=== PATIENT | female | born 1990 | race Caucasian/White ===

== ENCOUNTER 2018-12-14 21:04 | Inpatient (IN) | payer MEDICAID, OTHER ==
[~2018-12-14] VITALS: Ht 160 cm; Wt 74.1 kg
[~2018-12-14 21:04] MED LIST: CHOL200052 PO; DIPH50VI10 IVPush; DOXY25TA45 PO; DOXY25TA52 PO; FOLI-17 PO; INSU100C SQ-INSULIN; INSU100I28 SQ-INSULIN; INSU100V8 SQ; METO-429 PO; METO5SOL2 PO; OMEP5POW PO; ONDA4TAB13 PO; PNV91TAB3 PO; PYRI25TA2 PO; SCOP1PAT11 TD; VITA1CAP PO
--- NOTE | 2018-12-14 21:25 | NUR ---
pt in gown in [facility].
[2018-12-14] MEDS ORDERED: MORPHINE SULFATE 4 MG/ML, 1ML ONE (21:42)
[2018-12-14] MEDS ORDERED: ONDANSETRON 2MG/ML, 2ML ONE (21:42)
--- NOTE | 2018-12-14 21:55 | NUR ---
iv access established. pt medicated per jan. lab at bs.
[2018-12-14] MEDS ORDERED: ONDANSETRON ODT 4 MG PO ONE (22:00)
[2018-12-14] MEDS ORDERED: ONDANSETRON 2MG/ML, 2ML IVPush ONE (22:00)
[2018-12-14] MEDS ORDERED: MORPHINE SULFATE 4 MG/ML, 1ML IVPush PRN (22:00)
[2018-12-14 22:08] LABS: BASOPHILS # (AUTO) 0.13 x10^3/uL (0-0.1); BASOPHILS % (AUTO) 1 % (0-1); EOSINOPHILS # (AUTO) 0.02 x10^3/uL (0-0.4); EOSINOPHILS % (AUTO) 0 % (1-7); LYMPHOCYTES # (AUTO) 2.11 x10^3/uL (1-3.4); LYMPHOCYTES % (AUTO) 17 % (22-44); MD NO; MEAN CORPUSCULAR HEMOGLOBIN 26.6 pg (27.0-34.8); MEAN CORPUSCULAR HGB CONC 33.3 g/dL (32.4-35.8); MEAN CORPUSCULAR VOLUME 79.9 fL (80-100); MEAN PLATELET VOLUME 7.4 fL (7.4-10.4); MONOCYTES # (AUTO) 0.53 x10^3/uL (0.2-0.8); MONOCYTES % (AUTO) 4 % (2-9); NEUTROPHILS # (AUTO) 9.56 x10^3/uL (1.8-6.8); NEUTROPHILS % (AUTO) 78 % (42-75); PLATELET COUNT 431 x10^3/uL (130-400); RED BLOOD COUNT 5.47 x10^6/uL (3.82-5.3); RED CELL DISTRIBUTION WIDTH 15.6 % (9.6-15.2)
[2018-12-14 22:18] LABS: ALANINE AMINOTRANSFERASE 22 U/L (12-78); ALBUMIN 3.5 g/dL (3.4-5.0); ANION GAP 13 mmol/L (5-15); CALCIUM 10.1 mg/dL (8.5-10.1); CHLORIDE 109 mmol/L (98-107)
[2018-12-14 22:19] LABS: ACETONE, SERUM Small (20mg/dL) mg/dL (Negative)
[2018-12-14 22:23] LABS: ALKALINE PHOSPHATASE 120 U/L (45-117); BILIRUBIN,TOTAL 0.3 mg/dL (0.2-1.0); CREATININE 1.52 mg/dL (0.55-1.02); TROPONIN I < 0.015 ng/mL (0.000-0.045)
--- NOTE | 2018-12-14 22:48 | NUR ---
pt medicated with iv fluids per mar.
[2018-12-14] MEDS ORDERED: SODIUM CHLORIDE 0.9% 1,000ML IVBOLUS ONE (23:00)
[2018-12-14] MEDS ORDERED: METOCLOPRAMIDE 5 MG/ML, 2ML ONE (23:14)
[2018-12-14] MEDS ORDERED: METOCLOPRAMIDE 5 MG/ML, 2ML IVPush ONE (23:30)
[2018-12-15] MEDS ORDERED: SODIUM CHLORIDE 0.9% 1,000 ML IV ONE (00:03)
--- NOTE | 2018-12-15 00:22 | NUR ---
report of pt to ezekiel choudhury. all questions answered.
--- NOTE | 2018-12-15 00:25 | NUR ---
pt transported to floor via gurney.
[2018-12-15] MEDS ORDERED: ONDANSETRON 2MG/ML, 2ML IVPush PRN (00:30)
[2018-12-15] MEDS ORDERED: MORPHINE SULFATE 4 MG/ML, 1ML IVPush PRN (00:30)
[2018-12-15 01:31] LABS: MICROSCOPIC AUTO
[2018-12-15 01:32] LABS: CULTURE INDICATED? YES
[2018-12-15 01:59] VITALS: BP 109/61
[2018-12-15] MEDS ORDERED: PROMETHAZINE 25 MG/ML, 1ML IM PRN (02:00)
[2018-12-15] MEDS ORDERED: ACETAMINOPHEN 325 MG TABLET PO PRN (02:00)
[2018-12-15] MEDS ORDERED: LACTATED RINGERS 1,000 ML IV SCH (02:10)
[2018-12-15] MEDS ORDERED: MORPHINE SULFATE 4 MG/ML, 1ML ONE ×2 (02:21→06:40)
[2018-12-15] MEDS: morphine SULFATE 10 MG/ML, 1ML IVPush PRN ×6 (02:26→20:33)
[2018-12-15] MEDS: ENOXAPARIN 40 MG/0.4 ML SQ SCH (02:27)
[2018-12-15] MEDS ORDERED: SCOPOLAMINE PATCH, 1.5MG PATCH.TD72 TD SCH (02:30)
[2018-12-15] MEDS ORDERED: METO25TA4 PO (02:58)
[2018-12-15] MEDS ORDERED: METOCLOPRAMIDE 10MG TABLET PO SCH (06:00)
[2018-12-15] MEDS: OMEPRAZOLE 20 MG CAPSULE.DR PO SCH (06:34)
[2018-12-15 07:39] VITALS: BP_SYST 105; BP_SYST 95; BP_DIAS 60; BP_DIAS 70
[2018-12-15] MEDS: MULTIVITS,STRESS FORMULA 1 TABLET PO SCH (07:49)
[2018-12-15] MEDS: FOLIC ACID 1 MG TABLET PO SCH (07:49)
[2018-12-15] MEDS: CHOLECALCIFEROL 1,000 UNIT TABLET PO SCH (07:50)
[2018-12-15] MEDS: METOPROLOL TARTRATE 25 MG TABLET PO SCH (08:05)
[2018-12-15] MEDS ORDERED: ONDANSETRON ODT 4 MG ONE (08:16)
[2018-12-15] MEDS: ONDANSETRON ODT 4 MG PO PRN ×2 (08:17→18:39)
[2018-12-15] MEDS ORDERED: PRENATAL VIT/IRON/FA 1 EACH TABLET PO SCH (09:00)
[2018-12-15] MEDS: METOCLOPRAMIDE 5 MG/ML, 2ML IVPush SCH ×3 (10:22→21:44)
[2018-12-15] MEDS: PROMETHAZINE 12.5 MG SUPP PR PRN ×2 (11:39→21:46)
[2018-12-15 12:19] LABS: ANION GAP 10 mmol/L (5-15); CALCIUM 8.9 mg/dL (8.5-10.1); CHLORIDE 109 mmol/L (98-107); CREATININE 1.33 mg/dL (0.55-1.02)
[2018-12-15] MEDS: LACTATED RINGERS 1,000 ML IV SCH ×2 (12:21→18:37)
[2018-12-15 12:29] LABS: BASOPHILS # (AUTO) 0.06 x10^3/uL (0-0.1); BASOPHILS % (AUTO) 1 % (0-1); EOSINOPHILS # (AUTO) 0.08 x10^3/uL (0-0.4); EOSINOPHILS % (AUTO) 1 % (1-7); HEMOGRAM NOTE RECHECKED; LYMPHOCYTES # (AUTO) 3.88 x10^3/uL (1-3.4); LYMPHOCYTES % (AUTO) 33 % (22-44); MD NO; MEAN CORPUSCULAR HEMOGLOBIN 26.5 pg (27.0-34.8); MEAN CORPUSCULAR HGB CONC 33.1 g/dL (32.4-35.8); MEAN PLATELET VOLUME 7.6 fL (7.4-10.4); MONOCYTES # (AUTO) 0.72 x10^3/uL (0.2-0.8); MONOCYTES % (AUTO) 6 % (2-9); NEUTROPHILS # (AUTO) 7.12 x10^3/uL (1.8-6.8); NEUTROPHILS % (AUTO) 60 % (42-75); PLATELET COUNT 338 x10^3/uL (130-400); RED BLOOD COUNT 4.57 x10^6/uL (3.82-5.3); RED CELL DISTRIBUTION WIDTH 15.9 % (9.6-15.2)
[2018-12-15 13:56] VITALS: BP 96/60
[2018-12-15 19:37] VITALS: BP 105/60
[2018-12-16 00:43] VITALS: BP 109/71
[2018-12-16] MEDS: morphine SULFATE 10 MG/ML, 1ML IVPush PRN ×6 (00:45→20:20)
[2018-12-16] MEDS: LACTATED RINGERS 1,000 ML IV SCH ×3 (00:45→16:33)
[2018-12-16] MEDS: ENOXAPARIN 40 MG/0.4 ML SQ SCH (04:45)
[2018-12-16] MEDS: METOCLOPRAMIDE 5 MG/ML, 2ML IVPush SCH ×4 (04:45→22:22)
[2018-12-16 05:27] LABS: BASOPHILS # (AUTO) 0.05 x10^3/uL (0-0.1); BASOPHILS % (AUTO) 1 % (0-1); EOSINOPHILS # (AUTO) 0.11 x10^3/uL (0-0.4); EOSINOPHILS % (AUTO) 1 % (1-7); LYMPHOCYTES # (AUTO) 3.67 x10^3/uL (1-3.4); LYMPHOCYTES % (AUTO) 37 % (22-44); MD NO; MEAN CORPUSCULAR HEMOGLOBIN 26.6 pg (27.0-34.8); MEAN CORPUSCULAR HGB CONC 32.5 g/dL (32.4-35.8); MEAN CORPUSCULAR VOLUME 81.9 fL (80-100); MEAN PLATELET VOLUME 7.7 fL (7.4-10.4); MONOCYTES # (AUTO) 0.43 x10^3/uL (0.2-0.8); MONOCYTES % (AUTO) 4 % (2-9); NEUTROPHILS % (AUTO) 57 % (42-75); PLATELET COUNT 301 x10^3/uL (130-400); RED BLOOD COUNT 4.25 x10^6/uL (3.82-5.3); RED CELL DISTRIBUTION WIDTH 16.3 % (9.6-15.2)
[2018-12-16 05:33] LABS: ANION GAP 8 mmol/L (5-15); CALCIUM 8.4 mg/dL (8.5-10.1); CHLORIDE 110 mmol/L (98-107)
[2018-12-16 05:35] LABS: CREATININE 0.83 mg/dL (0.55-1.02)
[2018-12-16] MEDS: OMEPRAZOLE 20 MG CAPSULE.DR PO SCH (06:29)
[2018-12-16 07:30] VITALS: BP 103/67
[2018-12-16] MEDS: ONDANSETRON 2MG/ML, 2ML IVPush PRN ×2 (08:24→16:31)
[2018-12-16] MEDS: METOPROLOL TARTRATE 25 MG TABLET PO SCH (08:25)
[2018-12-16] MEDS: FOLIC ACID 1 MG TABLET PO SCH (08:25)
[2018-12-16] MEDS: MULTIVITS,STRESS FORMULA 1 TABLET PO SCH (08:25)
[2018-12-16] MEDS: CHOLECALCIFEROL 1,000 UNIT TABLET PO SCH (08:25)
[2018-12-16 13:29] VITALS: BP 125/73
[2018-12-16] MEDS ORDERED: MORPHINE SULFATE 4 MG/ML, 1ML ONE ×2 (13:33→20:12)
[2018-12-16 20:18] VITALS: BP 143/87
[2018-12-17] MEDS ORDERED: MORPHINE SULFATE 4 MG/ML, 1ML ONE ×2 (00:25→03:57)
[2018-12-17] MEDS: morphine SULFATE 10 MG/ML, 1ML IVPush PRN ×3 (00:28→08:22)
[2018-12-17] MEDS: ONDANSETRON ODT 4 MG PO PRN ×4 (00:28→19:06)
[2018-12-17 01:23] VITALS: BP 123/79
[2018-12-17] MEDS ORDERED: LACTATED RINGERS 1,000 ML IV SCH (02:10)
[2018-12-17] MEDS: METOCLOPRAMIDE 5 MG/ML, 2ML IVPush SCH ×2 (04:02→09:58)
[2018-12-17] MEDS: ENOXAPARIN 40 MG/0.4 ML SQ SCH (04:06)
[2018-12-17] MEDS: LACTATED RINGERS 1,000 ML IV SCH (04:11)
[2018-12-17] MEDS: OMEPRAZOLE 20 MG CAPSULE.DR PO SCH ×2 (06:00→22:06)
[2018-12-17 06:11] LABS: ANION GAP 7 mmol/L (5-15); CALCIUM 8.3 mg/dL (8.5-10.1); CHLORIDE 111 mmol/L (98-107); CREATININE 0.69 mg/dL (0.55-1.02)
[2018-12-17 07:32] VITALS: BP 139/93
[2018-12-17] MEDS: CHOLECALCIFEROL 1,000 UNIT TABLET PO SCH (08:22)
[2018-12-17] MEDS: MULTIVITS,STRESS FORMULA 1 TABLET PO SCH (08:22)
[2018-12-17] MEDS: FOLIC ACID 1 MG TABLET PO SCH (08:22)
[2018-12-17] MEDS: METOPROLOL TARTRATE 25 MG TABLET PO SCH (08:22)
[2018-12-17] MEDS ORDERED: VANCOMYCIN PER PHARMACY MC PRN (10:30)
[2018-12-17] MEDS ORDERED: SCOPOLAMINE PATCH, 1.5MG PATCH.TD72 TD PRN (10:30)
[2018-12-17] MEDS ORDERED: METOCLOPRAMIDE 10MG TABLET PO PRN (10:30)
[2018-12-17] MEDS ORDERED: ACETAMINOPHEN 325 MG TABLET PO PRN (10:30)
[2018-12-17] MEDS: KETOROLAC 30 MG/1 ML IM PRN ×2 (10:41→19:07)
[2018-12-17] MEDS ORDERED: PHARMACOKINETIC MONITORING MC PRN (11:00)
[2018-12-17] MEDS ORDERED: PHARMACOKINETIC CONSULTATION MC ONE (11:00)
[2018-12-17] MEDS: VANCOMYCIN 1,100 MG in SODIUM CHLORIDE 0.9% 250 ML IV SCH ×2 (12:15→23:06)
[2018-12-17] MEDS: PANCRELIPASE 24,000 CAPSULE.DR PO SCH ×2 (12:22→16:51)
[2018-12-17 12:59] VITALS: BP 128/90
[2018-12-17 19:46] VITALS: BP 129/87
[2018-12-17] MEDS: ONDANSETRON 2MG/ML, 2ML IVPush PRN (23:06)
[2018-12-17] MEDS: PROMETHAZINE 12.5 MG SUPP PR PRN (23:40)
[2018-12-18 00:28] VITALS: BP 153/103
[2018-12-18 01:58] LABS: BASOPHILS # (AUTO) 0.06 x10^3/uL (0-0.1); BASOPHILS % (AUTO) 1 % (0-1); EOSINOPHILS # (AUTO) 0.23 x10^3/uL (0-0.4); EOSINOPHILS % (AUTO) 3 % (1-7); LYMPHOCYTES # (AUTO) 3.04 x10^3/uL (1-3.4); LYMPHOCYTES % (AUTO) 39 % (22-44); MD NO; MEAN CORPUSCULAR HEMOGLOBIN 26.2 pg (27.0-34.8); MEAN CORPUSCULAR HGB CONC 32.2 g/dL (32.4-35.8); MEAN CORPUSCULAR VOLUME 81.3 fL (80-100); MEAN PLATELET VOLUME 7.8 fL (7.4-10.4); MONOCYTES % (AUTO) 5 % (2-9); NEUTROPHILS # (AUTO) 4.04 x10^3/uL (1.8-6.8); NEUTROPHILS % (AUTO) 52 % (42-75); PLATELET COUNT 292 x10^3/uL (130-400); RED BLOOD COUNT 4.85 x10^6/uL (3.82-5.3); RED CELL DISTRIBUTION WIDTH 16.1 % (9.6-15.2)
[2018-12-18 02:05] LABS: ANION GAP 11 mmol/L (5-15); CALCIUM 8.7 mg/dL (8.5-10.1); CHLORIDE 106 mmol/L (98-107)
[2018-12-18] MEDS: ENOXAPARIN 40 MG/0.4 ML SQ SCH (04:00)
[2018-12-18] MEDS: FOLIC ACID 1 MG TABLET PO SCH (09:01)
[2018-12-18] MEDS: METOPROLOL TARTRATE 25 MG TABLET PO SCH (09:01)
[2018-12-18] MEDS: CHOLECALCIFEROL 1,000 UNIT TABLET PO SCH (09:01)
[2018-12-18] MEDS: OMEPRAZOLE 20 MG CAPSULE.DR PO SCH (09:01)
[2018-12-18] MEDS: PANCRELIPASE 24,000 CAPSULE.DR PO SCH ×2 (09:01→10:53)
[2018-12-18] MEDS: MULTIVITS,STRESS FORMULA 1 TABLET PO SCH (09:01)
[2018-12-18 09:08] VITALS: BP 135/80
[2018-12-18] MEDS ORDERED: AMPICILLIN/SULBACTAM 3 GM in SODIUM CHLORIDE 0.9% 100 ML IV SCH (09:30)
[2018-12-18] MEDS ORDERED: POTASSIUM CHLORIDE 20 MEQ TAB.ER.PRT PO ONE ×2 (10:00→12:00)
[2018-12-18] MEDS ORDERED: LEVOFLOXACIN/PMX 750MG/150ML 150 ML IV SCH (10:30)
== END 2018-12-18 13:30 | disposition left against medical advice (07) | DRG 73 ==
LOC: ED 23:59 → 4NOR 12-15 00:03
PROVIDERS: ADMIT Internal Medicine; ATTEND Internal Medicine
PROC: 5A09357 Assistance with Respiratory Ventilation, Less than 24 Consecutive Hours, Continuous Positive Airway Pressure (ICD-10-PCS; principal; 2018-12-17)
DX: E10.43 Type 1 diabetes mellitus with diabetic autonomic (poly)neuropathy (principal); N17.0 Acute kidney failure with tubular necrosis; K86.1 Other chronic pancreatitis; N39.0 Urinary tract infection, site not specified; K31.84 Gastroparesis; B95.2 Enterococcus as the cause of diseases classified elsewhere; E10.65 Type 1 diabetes mellitus with hyperglycemia; E78.5 Hyperlipidemia, unspecified; E83.52 Hypercalcemia; E86.0 Dehydration; E86.1 Hypovolemia; K52.9 Noninfective gastroenteritis and colitis, unspecified; K76.9 Liver disease, unspecified; Z79.4 Long term (current) use of insulin; Z80.3 Family history of malignant neoplasm of breast; Z82.49 Family history of ischemic heart disease and other diseases of the circulatory system; Z96.41 Presence of insulin pump (external) (internal); R00.0 Tachycardia, unspecified; R59.1 Generalized enlarged lymph nodes
CPT/HCPCS: 36415; 71045; 74176; 80048; 80053; 81001; 82010; 82947; 82962; 83690; 83735; 84100; 84484; 84703; 85025; 87077; 87086; 87186; 93005; 96374; 96375; 99285; G0378; J1650; J1885; J1956; J2405; J2550; J3370; Q0162; J2270; J2765; J7030; J7050; J7120

== ENCOUNTER 2018-12-31 08:16 | Inpatient (IN) | payer OTHER ==
[~2018-12-31] VITALS: Ht 160 cm; Wt 61.5 kg
[~2018-12-31 08:16] MED LIST changes: +METO25TA4 PO
--- NOTE | 2018-12-31 08:23 | NUR ---
blood glucose p.o.c. in triage
--- NOTE | 2018-12-31 08:29 | NUR ---
PT AMBULATORY WITH STEADY GAIT TO ROOM 17
--- NOTE | 2018-12-31 08:31 | NUR ---
28 Y/O FEMALE PRESENTS TO ED WITH C/O VOMITING AND ABD CRAMPING. "I WAS AT [facility] FOR DKA AND DISCHARGED 3 DAYS AGO STILL THROWING UP. I THINK I'M STILL IN DKA. I'VE BEEN THROWING UP." PT PLACED ON CONT PULSE OX,NIBP, CRAPS MANAGER. FAMILY BEDSIDE. NO C/O D, TRAUMA, SYNCOPE, CP, SOB
[2018-12-31] MEDS ORDERED: PROMETHAZINE 25 MG/ML, 1ML ONE (08:51)
[2018-12-31] MEDS ORDERED: SODIUM CHLORIDE 0.9% 1,000ML IVBOLUS ONE ×3 (09:00→10:30)
[2018-12-31] MEDS ORDERED: PROMETHAZINE 25 MG/ML, 1ML IM ONE (09:00)
--- NOTE | 2018-12-31 09:05 | NUR ---
PIV ESTABLISHED. PT AMBULATORY WITH STEADY GAIT TO BATHROOM.
[2018-12-31 09:12] LABS: PH, VENOUS 7.354 pH (7.320-7.420)
[2018-12-31 09:14] LABS: FIO2 RA %
--- NOTE | 2018-12-31 09:15 | NUR ---
PT RESTING ON GURNEY. NO ACUTE DISTRESS NOTED. ALL MONITORS REATTACHED. FAMILY BEDSIDE. NO NEEDS REQUESTED AT THIS TIME.
[2018-12-31 09:16] LABS: BASOPHILS % (AUTO) 0 % (0-1); EOSINOPHILS # (AUTO) 0.18 x10^3/uL (0-0.4); EOSINOPHILS % (AUTO) 1 % (1-7); LYMPHOCYTES # (AUTO) 0.95 x10^3/uL (1-3.4); LYMPHOCYTES % (AUTO) 6 % (22-44); MD NO; MEAN CORPUSCULAR HEMOGLOBIN 25.4 pg (27.0-34.8); MEAN CORPUSCULAR HGB CONC 31.6 g/dL (32.4-35.8); MEAN CORPUSCULAR VOLUME 80.4 fL (80-100); MEAN PLATELET VOLUME 7.7 fL (7.4-10.4); MONOCYTES # (AUTO) 0.72 x10^3/uL (0.2-0.8); MONOCYTES % (AUTO) 4 % (2-9); NEUTROPHILS # (AUTO) 15.04 x10^3/uL (1.8-6.8); NEUTROPHILS % (AUTO) 89 % (42-75); PLATELET COUNT 500 x10^3/uL (130-400); RED BLOOD COUNT 5.42 x10^6/uL (3.82-5.3); RED CELL DISTRIBUTION WIDTH 15.9 % (9.6-15.2)
[2018-12-31 09:25] LABS: ALANINE AMINOTRANSFERASE 38 U/L (12-78); ALBUMIN 3.5 g/dL (3.4-5.0); ANION GAP 17 mmol/L (5-15); CALCIUM 9.8 mg/dL (8.5-10.1); CHLORIDE 89 mmol/L (98-107)
[2018-12-31 09:26] LABS: ACETONE, SERUM Large (80mg/dL) mg/dL (Negative)
--- NOTE | 2018-12-31 09:30 | NUR ---
UA SENT TO LAB
[2018-12-31 09:31] LABS: ALKALINE PHOSPHATASE 131 U/L (45-117); TOTAL PROTEIN 7.8 g/dL (6.4-8.2)
[2018-12-31] MEDS ORDERED: INSULIN REGULAR 100 UNITS/ML, 3ML VIAL ONE ×2 (09:35→12:40)
[2018-12-31 09:37] LABS: MICROSCOPIC AUTO
[2018-12-31 09:45] LABS: CULTURE INDICATED? NO
[2018-12-31] MEDS ORDERED: INSULIN REGULAR 100 UNITS/ML, 3ML VIAL IVPush ONE (10:00)
[2018-12-31] MEDS ORDERED: SODIUM CHLORIDE 0.9%, 250ML IVBOLUS ONE (10:00)
--- NOTE | 2018-12-31 10:07 | NUR ---
PT RESTING ON [employer] PLAYING ON CELL PHONE. NO ACUTE DISTRESS NOTED. PT HAD ONE EPISODE OF EMESIS. FAMILY BEDSIDE. NO NEEDS REQUESTED AT THIS TIME
[2018-12-31] MEDS ORDERED: ALPR-475 PO (10:30)
[2018-12-31] MEDS ORDERED: ONDANSETRON 2MG/ML, 2ML IVPush PRN (10:30)
[2018-12-31] MEDS ORDERED: DEXTROSE 4 GM TAB.CHEW PO PRN (10:30)
[2018-12-31] MEDS ORDERED: SODIUM CHLORIDE FLUSH 10ML SYR IVF SCH (10:30)
[2018-12-31] MEDS ORDERED: INSULIN NPH HUMAN 100 UNIT/ML, 3ML VIAL SQ-INSULIN SCH (10:30)
[2018-12-31] MEDS ORDERED: INSU100C SQ-INSULIN (10:30)
[2018-12-31] MEDS ORDERED: DEXTROSE 50%, 50ML SYRINGE IVPush PRN (10:30)
[2018-12-31] MEDS ORDERED: INSU100V8 SQ (10:30)
[2018-12-31] MEDS ORDERED: DULO30CA2 PO (10:30)
[2018-12-31] MEDS ORDERED: GLUCAGON 1 MG IM PRN (10:30)
[2018-12-31] MEDS ORDERED: HEPARIN 5,000 UNITS/ML, 1ML SQ SCH (10:30)
[2018-12-31] MEDS ORDERED: NS + 20MEQ KCL 1,000 ML IV SCH (10:32)
--- NOTE | 2018-12-31 10:46 | NUR ---
PT RESTING ON GURNEY. NO ACUTE DISTRESS NOTED. PT PLAYING ON CELL PHONE. FAMILY LEFT AND WILL BE BACK LATER. AWAITING BED ASSIGNMENT
[2018-12-31] MEDS ORDERED: hydrALAzine 20 MG/ML, 1ML IVPush PRN (11:00)
[2018-12-31] MEDS ORDERED: ACETAMINOPHEN 325 MG TABLET PO PRN (11:00)
[2018-12-31] MEDS ORDERED: INSULIN LISPRO 100 UNITS/ML, PEN SQ-INSULIN SCH (11:00)
[2018-12-31] MEDS ORDERED: METOPROLOL TARTRATE 50 MG TABLET PO SCH (11:00)
--- NOTE | 2018-12-31 11:03 | NUR ---
PT OUT OF ROOM TO IMAGING
--- NOTE | 2018-12-31 11:05 | NUR ---
PT BACK FROM IMAGING.
--- NOTE | 2018-12-31 11:31 | NUR ---
REPORT TO [facility]. ALL QUESTIONS ANSWERED
--- NOTE | 2018-12-31 11:53 | NUR ---
PT RESTING ON GURNEY. NO ACUTE DISTRESS NOTED. NO NEEDS REQUESTED AT THIS TIME. LAB BEDSIDE.
[2018-12-31] MEDS ORDERED: ERYTHROMYCIN BASE 250 MG TABLET PO SCH (12:00)
[2018-12-31 12:25] LABS: HEMOGLOBIN A1C 12.4 % (4.2-6.3)
[2018-12-31 12:29] LABS: ANION GAP 15 mmol/L (5-15); CALCIUM 8.2 mg/dL (8.5-10.1); CHLORIDE 100 mmol/L (98-107); CREATININE 1.23 mg/dL (0.55-1.02)
[2018-12-31 12:47] VITALS: BP 124/58
--- NOTE | 2018-12-31 12:53 | NUR ---
CALLED UPDATES TO [facility]. RECEIVING RN AWARE OF NPH TO BE ADMINISTERED. ALL QUESTIONS ANSWERED.
--- NOTE | 2018-12-31 12:53 | NUR ---
PT TRANSFERRED TO FLOOR. PT LEFT WITH ALL PERSONAL BELONGINGS.
[2018-12-31] MEDS ORDERED: ERYTHROMYCIN 200 MG/5 ML ORAL SOL PO SCH (13:30)
[2018-12-31] MEDS ORDERED: INSULIN GLARGINE 100 UNITS/ML, PEN SQ-INSULIN SCH (21:00)
[2019-01-01] MEDS ORDERED: DULOXETINE 30 MG CAPSULE.DR PO SCH (09:00)
[2019-01-01] MEDS ORDERED: CHOLECALCIFEROL 1,000 UNIT TABLET PO SCH (09:00)
== END 2018-12-31 15:15 | disposition left against medical advice (07) | DRG 682 ==
LOC: ED 09:56 → EDIP 09:57 → ED 10:34 → 4WST 13:03
PROVIDERS: ADMIT Hospitalist; ATTEND Hospitalist
DX: N17.9 Acute kidney failure, unspecified (principal); E10.10 Type 1 diabetes mellitus with ketoacidosis without coma; R65.11 Systemic inflammatory response syndrome (SIRS) of non-infectious origin with acute organ dysfunction; E87.1 Hypo-osmolality and hyponatremia; K86.1 Other chronic pancreatitis; R65.10 Systemic inflammatory response syndrome (SIRS) of non-infectious origin without acute organ dysfunction; E10.43 Type 1 diabetes mellitus with diabetic autonomic (poly)neuropathy; E78.5 Hyperlipidemia, unspecified; E86.0 Dehydration; G89.29 Other chronic pain; K31.84 Gastroparesis; D47.3 Essential (hemorrhagic) thrombocythemia; R00.0 Tachycardia, unspecified; E86.9 Volume depletion, unspecified; Z53.21 Procedure and treatment not carried out due to patient leaving prior to being seen by health care provider; Z96.41 Presence of insulin pump (external) (internal); Z81.8 Family history of other mental and behavioral disorders; Z82.49 Family history of ischemic heart disease and other diseases of the circulatory system; Z98.891 History of uterine scar from previous surgery; Z88.0 Allergy status to penicillin; Z88.8 Allergy status to other drugs, medicaments and biological substances
CPT/HCPCS: 36415; 71045; 74018; 80048; 80053; 81001; 82010; 82803; 83036; 83605; 83690; 83735; 84100; 85025; 93005; 96361; 96372; 96374; 99291; G0378; J2405; J2550; J7030; J7050

== ENCOUNTER 2019-05-27 12:17 | Emergency (ER) | payer MEDICAID ==
[~2019-05-27] VITALS: Ht 160 cm; Wt 69.1 kg
[~2019-05-27 12:17] MED LIST changes: +ALPR-475 PO; +DULO30CA2 PO
--- NOTE | 2019-05-27 12:34 | NUR ---
PT HAS CO OF HIGH BLOOD PRESSURE FOR A FEW DAYS WITH HEADACHE. PT NOTICED BLOOD WAS 150/108 AND 9 WEEKS . WAITING FOR MD ORDERS.
[2019-05-27] MEDS ORDERED: LABETALOL 5MG/ML, 20ML IVPush ONE (13:00)
[2019-05-27] MEDS ORDERED: SODIUM CHLORIDE FLUSH 10ML SYR IVF ONE (13:00)
[2019-05-27] MEDS ORDERED: MORPHINE SULFATE 4 MG/ML, 1ML IVPush PRN (13:00)
[2019-05-27] MEDS ORDERED: ONDANSETRON 2MG/ML, 2ML IVPush ONE (13:00)
[2019-05-27 13:02] LABS: BASOPHILS # (AUTO) 0.05 x10^3/uL (0-0.1); BASOPHILS % (AUTO) 1 % (0-1); EOSINOPHILS # (AUTO) 0.16 x10^3/uL (0-0.4); EOSINOPHILS % (AUTO) 2 % (1-7); LYMPHOCYTES # (AUTO) 2.33 x10^3/uL (1-3.4); LYMPHOCYTES % (AUTO) 25 % (22-44); MD NO; MEAN CORPUSCULAR HEMOGLOBIN 25.7 pg (27.0-34.8); MEAN CORPUSCULAR HGB CONC 32.3 g/dL (32.4-35.8); MEAN CORPUSCULAR VOLUME 79.7 fL (80-100); MEAN PLATELET VOLUME 6.8 fL (7.4-10.4); MONOCYTES # (AUTO) 0.67 x10^3/uL (0.2-0.8); MONOCYTES % (AUTO) 7 % (2-9); NEUTROPHILS # (AUTO) 6.27 x10^3/uL (1.8-6.8); NEUTROPHILS % (AUTO) 66 % (42-75); PLATELET COUNT 428 x10^3/uL (130-400); RED BLOOD COUNT 5.02 x10^6/uL (3.82-5.3); RED CELL DISTRIBUTION WIDTH 16.3 % (9.6-15.2)
[2019-05-27] MEDS ORDERED: LABETALOL 5MG/ML, 20ML ONE (13:05)
[2019-05-27] MEDS ORDERED: ONDANSETRON 2MG/ML, 2ML ONE (13:05)
[2019-05-27] MEDS ORDERED: MORPHINE SULFATE 4 MG/ML, 1ML ONE (13:06)
[2019-05-27 13:14] LABS: ALANINE AMINOTRANSFERASE 15 U/L (12-78); ALBUMIN 2.5 g/dL (3.4-5.0); ANION GAP 8 mmol/L (5-15); CALCIUM 9.1 mg/dL (8.5-10.1); CHLORIDE 109 mmol/L (98-107); CREATININE 0.86 mg/dL (0.55-1.02)
[2019-05-27 13:16] LABS: ALKALINE PHOSPHATASE 61 U/L (45-117); BILIRUBIN,TOTAL 0.2 mg/dL (0.2-1.0); TOTAL PROTEIN 6.6 g/dL (6.4-8.2)
--- NOTE | 2019-05-27 13:17 | NUR ---
MEDICATED PER ORDERS. PT STATES "HEADACHE IS COMING DOWN" WILL CONTINUE TO MONITOR
--- NOTE | 2019-05-27 13:34 | NUR ---
PT TO X RAY VIA [facility]
--- NOTE | 2019-05-27 13:58 | NUR ---
PT RESTING, VERBALIZED NO NEEDS AT THIS TIME
--- NOTE | 2019-05-27 14:13 | NUR ---
PT AMBULATED STEADY TO BATHROOM. UA OBTAINED
[2019-05-27 14:38] VITALS: BP 154/91
--- NOTE | 2019-05-27 14:39 | NUR ---
Patient/Caregiver given discharge instructions and they have confirmed that they understand the instructions. Patient ambulatory with steady gait.
[2019-05-27 14:50] LABS: MICROSCOPIC INDICATED
[2019-05-27 14:54] LABS: CULTURE INDICATED? YES
== END 2019-05-27 14:49 | disposition home or self-care (01) ==
LOC: ED 13:46
DX: O16.1 Unspecified maternal hypertension, first trimester (principal); O24.419 Gestational diabetes mellitus in pregnancy, unspecified control; O26.891 Other specified pregnancy related conditions, first trimester; R51 Headache; E78.5 Hyperlipidemia, unspecified; Z3A.09 9 weeks gestation of pregnancy
CPT/HCPCS: 36415; 70450; 80053; 81001; 83735; 85025; 87077; 87086; 87186; 93005; 96374; 96375; 99291; J2270; J2405

== ENCOUNTER 2019-06-07 14:37 | Inpatient (IN) | payer MEDICAID ==
[~2019-06-07] VITALS: Ht 160 cm; Wt 70.6 kg
[2019-06-11 01:18] VITALS: BP 118/71
== END 2019-06-12 15:33 | disposition home or self-care (01) | DRG 832 ==
LOC: ED 15:29 → EDIP 17:08 → 4WST 18:44 → 3NE 06-11 20:27
PROVIDERS: ADMIT Family Medicine; ATTEND Family Medicine
PROC: 02HV33Z Insertion of Infusion Device into Superior Vena Cava, Percutaneous Approach (ICD-10-PCS; principal; 2019-06-12)
PROC: B5181ZA Fluoroscopy of Superior Vena Cava using Low Osmolar Contrast, Guidance (ICD-10-PCS; 2019-06-12)
PROC: B548ZZA Ultrasonography of Superior Vena Cava, Guidance (ICD-10-PCS; 2019-06-12)
DX: O23.01 Infections of kidney in pregnancy, first trimester (principal); E87.2 Acidosis; O98.811 Other maternal infectious and parasitic diseases complicating pregnancy, first trimester; O24.911 Unspecified diabetes mellitus in pregnancy, first trimester; R65.10 Systemic inflammatory response syndrome (SIRS) of non-infectious origin without acute organ dysfunction; B95.7 Other staphylococcus as the cause of diseases classified elsewhere; M94.0 Chondrocostal junction syndrome [Tietze]; E10.649 Type 1 diabetes mellitus with hypoglycemia without coma; E78.5 Hyperlipidemia, unspecified; E87.6 Hypokalemia; Z96.41 Presence of insulin pump (external) (internal); B37.3 Candidiasis of vulva and vagina; Z86.718 Personal history of other venous thrombosis and embolism; Z3A.10 10 weeks gestation of pregnancy; Z88.0 Allergy status to penicillin; Z88.5 Allergy status to narcotic agent; Z79.4 Long term (current) use of insulin; Z87.39 Personal history of other diseases of the musculoskeletal system and connective tissue; Z88.1 Allergy status to other antibiotic agents; Z88.8 Allergy status to other drugs, medicaments and biological substances
CPT/HCPCS: 36415; 36573; 76770; 76801; 80053; 81001; 82962; 83036; 83605; 83690; 84145; 84484; 84550; 84702; 85025; 87040; 87077; 87086; 87102; 87186; 93005; 93306; 93970; 96361; 96374; 99291; G0378; J1335; J1644; J2185; J2405; J2550; C1751; J2270; J7030

== ENCOUNTER 2019-06-14 13:50 | Inpatient (IN) | payer MEDICAID ==
[~2019-06-14] VITALS: Ht 160 cm; Wt 72.4 kg
[2019-06-24 12:55] VITALS: BP 105/71
== END 2019-06-24 15:30 | disposition home or self-care (01) | DRG 831 ==
LOC: ED 14:21 → EDIP 16:31 → 4NOR 18:53 → DCLOUNGE 06-24 15:24
PROVIDERS: ADMIT Internal Medicine; ATTEND Internal Medicine
DX: O98.811 Other maternal infectious and parasitic diseases complicating pregnancy, first trimester (principal); A41.9 Sepsis, unspecified organism; O23.01 Infections of kidney in pregnancy, first trimester; O24.911 Unspecified diabetes mellitus in pregnancy, first trimester; O98.311 Other infections with a predominantly sexual mode of transmission complicating pregnancy, first trimester; O10.911 Unspecified pre-existing hypertension complicating pregnancy, first trimester; A59.9 Trichomoniasis, unspecified; D53.9 Nutritional anemia, unspecified; E78.5 Hyperlipidemia, unspecified; E87.6 Hypokalemia; Z3A.12 12 weeks gestation of pregnancy; O99.281 Endocrine, nutritional and metabolic diseases complicating pregnancy, first trimester; Z96.41 Presence of insulin pump (external) (internal); Z88.0 Allergy status to penicillin; Z86.718 Personal history of other venous thrombosis and embolism; E11.649 Type 2 diabetes mellitus with hypoglycemia without coma
CPT/HCPCS: 36415; 76700; 76770; 76801; 80048; 80053; 81001; 82010; 82803; 82962; 83605; 83690; 83735; 84100; 84702; 85025; 86592; 87040; 87086; 87491; 87591; 87806; 93005; 96374; 99291; G0378; J1335; J1644; J1956; J2185; J2405; J2550; J3010; G0475; J2270; J7030

== ENCOUNTER 2019-09-04 15:44 | Inpatient (IN) | payer MEDICAID ==
[~2019-09-04] VITALS: Ht 160 cm; Wt 70.6 kg
[~2019-09-04 15:44] MED LIST changes: -ALPR-475 PO; +ALPR0.5T7 PO; +ASPI-191 PO; +CHOL100011 PO; +CLIN300C8 PO; +CLOT45CR5 VG; +ENOX40SY4 SQ; +ENOX40SY5 SQ; +ERTA1VIA4 INLINE; +FERR325T5 PO; +HYDR-3342 PO; +INSULIN PUMP; +LABE100T6 PO; +LABE200T6 PO; +NIFE30TA13 PO; +PREN-3 PO; +PRENATAL VITAMIN; +PROM12.57 PO; +PROM25SU35 PR
[2019-09-04] MEDS ORDERED: DEXTROSE 40%, 37.5 GM GEL ONE (16:09)
[2019-09-04] MEDS ORDERED: D5%-0.45% NACL 1,000 ML IV SCH (17:18)
[2019-09-04] MEDS ORDERED: DOCUSATE 100 MG CAPSULE PO PRN (17:30)
[2019-09-04] MEDS ORDERED: PLEASE ENTER HEIGHT AND WEIGHT MC SCH (17:30)
[2019-09-04 17:40] LABS: ALBUMIN 2.2 g/dL (3.4-5.0); ANION GAP 6 mmol/L (5-15); CALCIUM 9.1 mg/dL (8.5-10.1); CHLORIDE 113 mmol/L (98-107)
[2019-09-04 17:46] LABS: ALANINE AMINOTRANSFERASE 15 U/L (12-78); ALKALINE PHOSPHATASE 68 U/L (45-117); BILIRUBIN,TOTAL 0.2 mg/dL (0.2-1.0); CREATININE 0.78 mg/dL (0.55-1.02); TOTAL PROTEIN 6.8 g/dL (6.4-8.2)
[2019-09-04 17:59] LABS: MEAN CORPUSCULAR HEMOGLOBIN 25.4 pg (27.0-34.8); MEAN CORPUSCULAR HGB CONC 32.1 g/dL (32.4-35.8); PLATELET COUNT 402 x10^3/uL (130-400); RED CELL DISTRIBUTION WIDTH 16.6 % (9.6-15.2)
[2019-09-04 18:10] LABS: MD YES
[2019-09-04 18:12] LABS: MICROSCOPIC AUTO
[2019-09-04 18:12] LABS: BAND#(MANUAL) 0.57 x10^3/uL; BANDS%(MANUAL) 4 % (0-7); BASOS#(MANUAL) 0.14 x10^3/uL (0-0.1); BASOS% (MANUAL) 1 % (0-1); EOS#(MANUAL) 0.14 x10^3/uL (0.0-0.4); EOS% (MANUAL) 1 % (1-7); LYMPH#(MANUAL) 3.29 x10^3/uL (1-3.4); LYMPHS% (MANUAL) 23 % (22-44); METAMYELOCYTES# (MANUAL) 0.14 x10^3/uL (0-0); METAMYELOCYTES% (MANUAL) 1 % (0-1); MONOS% (MANUAL) 7 % (2-9); SEG#(MANUAL) 9.01 x10^3/uL (1.8-6.8); SEGS% (MANUAL) 63 % (42-75)
[2019-09-04 18:13] LABS: <PLATELET ESTIMATE> INCREASED; <PLT MORPHOLOGY> NORMAL PLT MORPH; ANISOCYTOSIS 1+; HYPOCHROMIA 1+; OVALOCYTES 1+; POLYCHROMASIA 1+
[2019-09-04 18:17] LABS: TROPONIN I < 0.015 ng/mL (0.000-0.045)
[2019-09-04 18:17] LABS: CULTURE INDICATED? NO
[2019-09-04] MEDS ORDERED: ADENOSINE 6 MG/2 ML ONE (19:00)
[2019-09-04] MEDS ORDERED: DEXTROSE 50%, 50ML SYRINGE ONE (19:00)
[2019-09-04 19:09] LABS: HEMOGLOBIN A1C 7.8 % (4.2-6.3)
[2019-09-04] MEDS: ONDANSETRON ODT 4 MG PO PRN (19:58)
[2019-09-04] MEDS ORDERED: ACETAMINOPHEN 100 ML IVPB ONE (20:00)
[2019-09-04] MEDS ORDERED: REGULAR INSULIN 62.5 UNITS in SODIUM CHLORIDE 0.9% 249.375 ML IV PRN (21:00)
[2019-09-04] MEDS: PROMETHAZINE 25 MG/ML, 1ML IM PRN (21:51)
[2019-09-04 22:40] LABS: ANION GAP 9 mmol/L (5-15); CALCIUM 8.4 mg/dL (8.5-10.1); CHLORIDE 110 mmol/L (98-107); CREATININE 0.86 mg/dL (0.55-1.02)
[2019-09-04 22:43] LABS: TROPONIN I < 0.015 ng/mL (0.000-0.045)
[2019-09-05] MEDS: ACETAMINOPHEN 325 MG TABLET PO PRN ×3 (04:10→20:54)
[2019-09-05 04:40] LABS: BASOPHILS # (AUTO) 0.02 x10^3/uL (0-0.1); BASOPHILS % (AUTO) 0 % (0-1); EOSINOPHILS % (AUTO) 1 % (1-7); LYMPHOCYTES # (AUTO) 3.11 x10^3/uL (1-3.4); LYMPHOCYTES % (AUTO) 21 % (22-44); MD NO; MEAN CORPUSCULAR HEMOGLOBIN 24.9 pg (27.0-34.8); MEAN CORPUSCULAR HGB CONC 31.6 g/dL (32.4-35.8); MEAN CORPUSCULAR VOLUME 78.7 fL (80-100); MEAN PLATELET VOLUME 6.5 fL (7.4-10.4); MONOCYTES # (AUTO) 0.86 x10^3/uL (0.2-0.8); MONOCYTES % (AUTO) 6 % (2-9); NEUTROPHILS # (AUTO) 10.87 x10^3/uL (1.8-6.8); NEUTROPHILS % (AUTO) 73 % (42-75); PLATELET COUNT 365 x10^3/uL (130-400); RED BLOOD COUNT 4.24 x10^6/uL (3.82-5.3)
[2019-09-05 04:48] LABS: ANION GAP 9 mmol/L (5-15); CALCIUM 8.5 mg/dL (8.5-10.1); CHLORIDE 112 mmol/L (98-107)
[2019-09-05 04:52] LABS: ALANINE AMINOTRANSFERASE 13 U/L (12-78); ALKALINE PHOSPHATASE 59 U/L (45-117); BILIRUBIN,TOTAL 0.2 mg/dL (0.2-1.0); CREATININE 0.75 mg/dL (0.55-1.02); TOTAL PROTEIN 6.2 g/dL (6.4-8.2)
[2019-09-05] MEDS: PROMETHAZINE 25 MG/ML, 1ML IM PRN ×2 (08:10→22:07)
[2019-09-05] MEDS: morphine SULFATE 10 MG/ML, 1ML IVPush PRN ×3 (12:03→22:07)
[2019-09-05] MEDS: ONDANSETRON ODT 4 MG PO PRN (12:04)
[2019-09-05] MEDS ORDERED: METOCLOPRAMIDE 5 MG/ML, 2ML IVPush PRN (16:00)
[2019-09-05] MEDS ORDERED: METOCLOPRAMIDE 5 MG/ML, 2ML ONE (16:29)
[2019-09-05] MEDS: ENOXAPARIN 40 MG/0.4 ML SQ SCH (16:35)
[2019-09-05] MEDS: METOCLOPRAMIDE 5 MG/ML, 2ML IVPush SCH ×2 (16:39→23:02)
[2019-09-05] MEDS ORDERED: D5%-0.45% NACL 1,000 ML IV SCH ×2 (17:18)
[2019-09-05] MEDS ORDERED: DEXTROSE 4 GM TAB.CHEW PO PRN (18:30)
[2019-09-05] MEDS ORDERED: GLUCAGON 1 MG IM PRN (18:30)
[2019-09-05] MEDS ORDERED: DEXTROSE 50%, 50ML SYRINGE IVPush PRN (18:30)
[2019-09-05] MEDS: SODIUM CHLORIDE FLUSH 10ML SYR IVF SCH (20:55)
[2019-09-05] MEDS ORDERED: INSULIN LISPRO 100 UNITS/ML, PEN SQ-INSULIN SCH (21:00)
[2019-09-05] MEDS: INSULIN LISPRO 100 UNITS/ML, PEN SQ-INSULIN SCH (23:00)
[2019-09-06] MEDS: INSULIN LISPRO 100 UNITS/ML, PEN SQ-INSULIN SCH ×6 (03:00→23:00)
[2019-09-06 04:20] LABS: ALANINE AMINOTRANSFERASE 13 U/L (12-78); ALBUMIN 1.9 g/dL (3.4-5.0); ANION GAP 7 mmol/L (5-15); CALCIUM 8.4 mg/dL (8.5-10.1); CHLORIDE 113 mmol/L (98-107); CREATININE 0.88 mg/dL (0.55-1.02)
[2019-09-06 04:22] LABS: ALKALINE PHOSPHATASE 55 U/L (45-117); BILIRUBIN,TOTAL 0.1 mg/dL (0.2-1.0); TOTAL PROTEIN 5.8 g/dL (6.4-8.2)
[2019-09-06 04:53] LABS: BASOPHILS # (AUTO) 0.07 x10^3/uL (0-0.1); BASOPHILS % (AUTO) 1 % (0-1); EOSINOPHILS # (AUTO) 0.33 x10^3/uL (0-0.4); EOSINOPHILS % (AUTO) 3 % (1-7); LYMPHOCYTES # (AUTO) 3.57 x10^3/uL (1-3.4); LYMPHOCYTES % (AUTO) 31 % (22-44); MD NO; MEAN CORPUSCULAR HEMOGLOBIN 25.4 pg (27.0-34.8); MEAN CORPUSCULAR HGB CONC 32.6 g/dL (32.4-35.8); MEAN PLATELET VOLUME 6.7 fL (7.4-10.4); MONOCYTES # (AUTO) 0.68 x10^3/uL (0.2-0.8); MONOCYTES % (AUTO) 6 % (2-9); NEUTROPHILS # (AUTO) 6.78 x10^3/uL (1.8-6.8); NEUTROPHILS % (AUTO) 59 % (42-75); PLATELET COUNT 375 x10^3/uL (130-400); RED BLOOD COUNT 3.84 x10^6/uL (3.82-5.3); RED CELL DISTRIBUTION WIDTH 16.9 % (9.6-15.2)
[2019-09-06] MEDS: METOCLOPRAMIDE 5 MG/ML, 2ML IVPush SCH ×4 (05:04→23:00)
[2019-09-06] MEDS: morphine SULFATE 10 MG/ML, 1ML IVPush PRN (06:39)
[2019-09-06] MEDS: SODIUM CHLORIDE FLUSH 10ML SYR IVF SCH ×2 (10:43→21:32)
[2019-09-06] MEDS: ACETAMINOPHEN 325 MG TABLET PO PRN (10:53)
[2019-09-06] MEDS ORDERED: MAGNESIUM SULFATE PMX 2GM/50ML 50 ML IV ONE (12:30)
[2019-09-06 14:45] VITALS: BP 149/66
[2019-09-06] MEDS: ENOXAPARIN 40 MG/0.4 ML SQ SCH (16:52)
[2019-09-06 19:51] VITALS: BP 152/99
[2019-09-07] MEDS: INSULIN LISPRO 100 UNITS/ML, PEN SQ-INSULIN SCH ×4 (03:00→14:55)
[2019-09-07 03:17] VITALS: BP 127/85
[2019-09-07] MEDS: METOCLOPRAMIDE 5 MG/ML, 2ML IVPush SCH ×3 (05:00→16:31)
[2019-09-07 05:34] VITALS: BP 140/90
[2019-09-07 06:08] LABS: BASOPHILS # (AUTO) 0.05 x10^3/uL (0-0.1); BASOPHILS % (AUTO) 0 % (0-1); EOSINOPHILS # (AUTO) 0.33 x10^3/uL (0-0.4); EOSINOPHILS % (AUTO) 3 % (1-7); LYMPHOCYTES # (AUTO) 2.69 x10^3/uL (1-3.4); LYMPHOCYTES % (AUTO) 21 % (22-44); MD NO; MEAN CORPUSCULAR HEMOGLOBIN 25.3 pg (27.0-34.8); MEAN CORPUSCULAR HGB CONC 32.3 g/dL (32.4-35.8); MEAN CORPUSCULAR VOLUME 78.2 fL (80-100); MEAN PLATELET VOLUME 6.8 fL (7.4-10.4); MONOCYTES # (AUTO) 0.69 x10^3/uL (0.2-0.8); MONOCYTES % (AUTO) 5 % (2-9); NEUTROPHILS # (AUTO) 9.18 x10^3/uL (1.8-6.8); NEUTROPHILS % (AUTO) 71 % (42-75); PLATELET COUNT 369 x10^3/uL (130-400); RED BLOOD COUNT 3.95 x10^6/uL (3.82-5.3); RED CELL DISTRIBUTION WIDTH 16.7 % (9.6-15.2)
[2019-09-07 06:19] LABS: CHLORIDE 108 mmol/L (98-107)
[2019-09-07 06:23] LABS: ANION GAP 7 mmol/L (5-15); CALCIUM 8.4 mg/dL (8.5-10.1); CREATININE 0.77 mg/dL (0.55-1.02)
[2019-09-07 07:00] VITALS: BP 127/82
[2019-09-07] MEDS: SODIUM CHLORIDE FLUSH 10ML SYR IVF SCH (09:37)
[2019-09-07 13:44] VITALS: BP 115/80
[2019-09-07] MEDS ORDERED: FLU VAC QS 19-20(4YR UP)CEL/PF 0.5 ML IM-VACC ONE (15:30)
[2019-09-07] MEDS ORDERED: FLU VACC QS2019-20 36MOS UP/PF 0.5 ML IM-VACC ONE (16:00)
[2019-09-07] MEDS: ENOXAPARIN 40 MG/0.4 ML SQ SCH (16:00)
== END 2019-09-07 16:30 | disposition home or self-care (01) | DRG 831 ==
LOC: LDOP 15:44 → CCU 18:06 → 3N 09-06 14:45 → DCLOUNGE 09-07 16:27
PROVIDERS: ADMIT Internal Medicine; ATTEND Internal Medicine
PROC: 0T9B70Z Drainage of Bladder with Drainage Device, Via Natural or Artificial Opening (ICD-10-PCS; principal; 2019-09-04)
DX: O99.283 Endocrine, nutritional and metabolic diseases complicating pregnancy, third trimester (principal); G93.41 Metabolic encephalopathy; D50.9 Iron deficiency anemia, unspecified; D72.829 Elevated white blood cell count, unspecified; E10.43 Type 1 diabetes mellitus with diabetic autonomic (poly)neuropathy; E10.649 Type 1 diabetes mellitus with hypoglycemia without coma; E88.09 Other disorders of plasma-protein metabolism, not elsewhere classified; K31.84 Gastroparesis; O99.013 Anemia complicating pregnancy, third trimester; O99.113 Other diseases of the blood and blood-forming organs and certain disorders involving the immune mechanism complicating pregnancy, third trimester; O99.353 Diseases of the nervous system complicating pregnancy, third trimester; Z3A.28 28 weeks gestation of pregnancy; Z86.718 Personal history of other venous thrombosis and embolism; Z87.39 Personal history of other diseases of the musculoskeletal system and connective tissue; Z96.41 Presence of insulin pump (external) (internal); O10.913 Unspecified pre-existing hypertension complicating pregnancy, third trimester; Z88.0 Allergy status to penicillin; Z88.8 Allergy status to other drugs, medicaments and biological substances
CPT/HCPCS: 74181; 76856; 76857; 80048; 80053; 81001; 82962; 83036; 83605; 83690; 83735; 84100; 84443; 84484; 85025; 87040; 87081; 90686; 93005; G0378; J0131; J0153; J1650; J1815; J2550; Q0162; J2270; J2765; J3475; J7050

== ENCOUNTER 2019-10-14 10:50 | Inpatient (IN) | payer OTHER, MEDICAID ==
[~2019-10-14] VITALS: Ht 162.6 cm; Wt 75.4 kg
[~2019-10-14 10:50] MED LIST changes: +DEXTROSE 50%, 50ML SYRINGE ONE
[2019-10-14] MEDS ORDERED: DEXTROSE 47%, 15GM GEL ONE ×2 (12:24→12:29)
[2019-10-14] MEDS ORDERED: GLUCAGON 1 MG IM ONE (13:00)
[2019-10-14] MEDS ORDERED: DEXTROSE 4 GM TAB.CHEW PO PRN (13:30)
[2019-10-14] MEDS ORDERED: hydrALAzine 20 MG/ML, 1ML IV PRN (13:30)
[2019-10-14] MEDS ORDERED: DEXTROSE 50%, 50ML SYRINGE IVPush PRN (13:30)
[2019-10-14] MEDS ORDERED: GLUCAGON 1 MG IM PRN (13:30)
[2019-10-14] MEDS ORDERED: DOCUSATE 100 MG CAPSULE PO PRN (13:30)
[2019-10-14 13:38] LABS: ALANINE AMINOTRANSFERASE 18 U/L (12-78); ALBUMIN 1.9 g/dL (3.4-5.0); ANION GAP 9 mmol/L (5-15); CALCIUM 8.7 mg/dL (8.5-10.1); CHLORIDE 111 mmol/L (98-107); CREATININE 0.76 mg/dL (0.55-1.02)
[2019-10-14 13:41] LABS: ALKALINE PHOSPHATASE 86 U/L (45-117); BILIRUBIN,TOTAL 0.2 mg/dL (0.2-1.0); TOTAL PROTEIN 6.4 g/dL (6.4-8.2)
[2019-10-14 14:37] LABS: CLOSTRIDIUM DIFFICILE ANTIGEN NEGATIVE; CLOSTRIDIUM DIFFICILE TOXIN NEGATIVE (Negative)
[2019-10-14 14:44] LABS: MEAN CORPUSCULAR HEMOGLOBIN 24.7 pg (27.0-34.8); MEAN CORPUSCULAR HGB CONC 31.4 g/dL (32.4-35.8); MEAN CORPUSCULAR VOLUME 78.5 fL (80-100); MEAN PLATELET VOLUME 6.6 fL (7.4-10.4); PLATELET COUNT 405 x10^3/uL (130-400); RED BLOOD COUNT 3.94 x10^6/uL (3.82-5.3); RED CELL DISTRIBUTION WIDTH 17.4 % (9.6-15.2)
[2019-10-14 15:15] LABS: MD YES
[2019-10-14] MEDS: D5%-0.45% NACL 1,000 ML IV SCH ×2 (15:18→23:45)
[2019-10-14] MEDS ORDERED: INSULIN LISPRO 100 UNITS/ML, PEN SQ-INSULIN SCH (16:00)
[2019-10-14 16:12] LABS: BAND#(MANUAL) 1.84 x10^3/uL; BANDS%(MANUAL) 8 % (0-7); LYMPH#(MANUAL) 1.38 x10^3/uL (1-3.4); LYMPHS% (MANUAL) 6 % (22-44); MONOS#(MANUAL) 1.38 x10^3/uL (0.3-2.7); MONOS% (MANUAL) 6 % (2-9); SEGS% (MANUAL) 80 % (42-75)
[2019-10-14 16:13] LABS: HYPOCHROMIA 1+; MICROCYTOSIS 1+
[2019-10-14 16:15] LABS: <PLATELET ESTIMATE> INCREASED; POLYCHROMASIA 1+; SMALL PLATELETS 1+
[2019-10-14 18:22] LABS: CULTURE INDICATED? YES; MICROSCOPIC INDICATED
[2019-10-14 18:28] LABS: BARBITURATE SCREEN, URINE Negative (Negative)
[2019-10-14 18:37] LABS: AMPHETAMINE SCREEN, URINE Negative (Negative); BENZODIAZEPINE SCREEN, URINE Negative (Negative); CANNABINOID SCREEN, URINE Negative (Negative); COCAINE SCREEN, URINE Negative (Negative); METHADONE SCREEN, URINE Negative (Negative); OPIATE SCREEN, URINE Negative (Negative); PROTEIN/CREATININE RATIO,URINE 3810 (0-200); TOTAL PROTEIN,URINE RANDOM 461 mg/dL (0-12)
[2019-10-14] MEDS: ENOXAPARIN 40 MG/0.4 ML SQ SCH (19:56)
[2019-10-14] MEDS ORDERED: FERROUS SULFATE 325 MG TABLET ONE (20:50)
[2019-10-14] MEDS ORDERED: SODIUM CHLORIDE FLUSH 10ML SYR IVF SCH (21:00)
[2019-10-14] MEDS: FERROUS SULFATE 325 MG TABLET PO SCH (21:10)
[2019-10-15] MEDS ORDERED: ONDANSETRON 2MG/ML, 2ML ONE (02:24)
[2019-10-15] MEDS ORDERED: FENTANYL PF 100 MCG/2ML ONE ×2 (02:24→04:57)
[2019-10-15] MEDS: ONDANSETRON 2MG/ML, 2ML IVPush PRN (02:25)
[2019-10-15] MEDS ORDERED: FENTANYL PF 100 MCG/2ML IV PRN ×3 (02:30→05:00)
[2019-10-15] MEDS ORDERED: hydrALAzine 20 MG/ML, 1ML ONE (02:43)
[2019-10-15] MEDS ORDERED: MAGNESIUM SULF. PMX 20GM/500ML 500 ML IV SCH (04:02)
[2019-10-15] MEDS ORDERED: MAGNESIUM SULFATE PMX 4GM/100M 100 ML ONE (04:06)
[2019-10-15] MEDS ORDERED: MAGNESIUM SULF. PMX 20GM/500ML 500 ML IV ONE (04:06)
[2019-10-15] MEDS ORDERED: MAGNESIUM SULFATE PMX 4GM/100M 100 ML IVPB ONE (04:30)
[2019-10-15] MEDS ORDERED: MAGNESIUM SULFATE PMX 2GM/50ML 50 ML IVPB ONE (04:30)
[2019-10-15 05:43] LABS: BASOPHILS # (AUTO) 0.01 x10^3/uL (0-0.1); BASOPHILS % (AUTO) 0 % (0-1); EOSINOPHILS # (AUTO) 0.19 x10^3/uL (0-0.4); EOSINOPHILS % (AUTO) 1 % (1-7); LYMPHOCYTES # (AUTO) 2.55 x10^3/uL (1-3.4); LYMPHOCYTES % (AUTO) 19 % (22-44); MD NO; MEAN CORPUSCULAR HEMOGLOBIN 24.9 pg (27.0-34.8); MEAN PLATELET VOLUME 6.7 fL (7.4-10.4); MONOCYTES # (AUTO) 0.74 x10^3/uL (0.2-0.8); MONOCYTES % (AUTO) 5 % (2-9); NEUTROPHILS # (AUTO) 10.17 x10^3/uL (1.8-6.8); NEUTROPHILS % (AUTO) 74 % (42-75); PLATELET COUNT 421 x10^3/uL (130-400); RED BLOOD COUNT 3.84 x10^6/uL (3.82-5.3); RED CELL DISTRIBUTION WIDTH 17.2 % (9.6-15.2)
[2019-10-15 05:44] LABS: ALANINE AMINOTRANSFERASE 18 U/L (12-78); ALBUMIN 1.7 g/dL (3.4-5.0); ANION GAP 9 mmol/L (5-15); CALCIUM 8.8 mg/dL (8.5-10.1); CHLORIDE 110 mmol/L (98-107); CREATININE 0.74 mg/dL (0.55-1.02)
[2019-10-15 05:47] LABS: ALKALINE PHOSPHATASE 80 U/L (45-117); BILIRUBIN,TOTAL 0.2 mg/dL (0.2-1.0); TOTAL PROTEIN 5.8 g/dL (6.4-8.2)
[2019-10-15 08:08] VITALS: BP 127/75
[2019-10-15] MEDS: MEROPENEM 1 GM in SODIUM CHLORIDE 0.9% 100 ML IV SCH ×3 (08:16→23:31)
[2019-10-15] MEDS: POTASSIUM CHLORIDE 20 MEQ TAB.ER.PRT PO SCH (08:23)
[2019-10-15] MEDS ORDERED: FERROUS SULFATE 325 MG TABLET ONE ×2 (09:09→21:07)
[2019-10-15] MEDS ORDERED: PRENATAL VIT/IRON/FA 1 EACH TABLET ONE (09:09)
[2019-10-15] MEDS: FERROUS SULFATE 325 MG TABLET PO SCH ×2 (09:20→21:16)
[2019-10-15] MEDS: PRENATAL VIT/IRON/FA 1 EACH TABLET PO SCH (09:20)
[2019-10-15] MEDS: CHOLECALCIFEROL 1,000 UNIT TABLET PO SCH (10:28)
[2019-10-15] MEDS ORDERED: SODIUM CHLORIDE 0.9% 1,000 ML IV SCH (11:00)
[2019-10-15] MEDS: SIMETHICONE 125 MG CHEW TAB PO SCH ×3 (11:05→21:35)
[2019-10-15 11:14] LABS: CREATININE 0.78 mg/dL (0.55-1.02)
[2019-10-15 12:37] LABS: AMPHETAMINE SCREEN, URINE Negative (Negative); BARBITURATE SCREEN, URINE Negative (Negative); BENZODIAZEPINE SCREEN, URINE Negative (Negative); CANNABINOID SCREEN, URINE Negative (Negative); COCAINE SCREEN, URINE Negative (Negative); METHADONE SCREEN, URINE Negative (Negative); OPIATE SCREEN, URINE Negative (Negative)
[2019-10-15] MEDS ORDERED: ACETAMINOPHEN 325 MG TABLET ONE (13:01)
[2019-10-15] MEDS: ACETAMINOPHEN 325 MG TABLET PO PRN (13:08)
[2019-10-15] MEDS ORDERED: MORPHINE SULFATE 4 MG/ML, 1ML ONE ×2 (13:28→23:28)
[2019-10-15] MEDS ORDERED: D5%-0.45% NACL 1,000 ML IV SCH (13:30)
[2019-10-15] MEDS: MORPHINE SULFATE 4 MG/ML, 1ML IVPush PRN ×3 (13:34→23:32)
[2019-10-15] MEDS: ENOXAPARIN 40 MG/0.4 ML SQ SCH (20:15)
[2019-10-15] MEDS ORDERED: SIMETHICONE 80 MG CHEW TAB ONE (21:07)
[2019-10-16 05:33] LABS: BASOPHILS # (AUTO) 0.06 x10^3/uL (0-0.1); BASOPHILS % (AUTO) 1 % (0-1); EOSINOPHILS # (AUTO) 0.23 x10^3/uL (0-0.4); EOSINOPHILS % (AUTO) 2 % (1-7); LYMPHOCYTES # (AUTO) 2.74 x10^3/uL (1-3.4); LYMPHOCYTES % (AUTO) 24 % (22-44); MD NO; MEAN CORPUSCULAR HGB CONC 32.4 g/dL (32.4-35.8); MEAN CORPUSCULAR VOLUME 77.3 fL (80-100); MEAN PLATELET VOLUME 6.8 fL (7.4-10.4); MONOCYTES # (AUTO) 0.76 x10^3/uL (0.2-0.8); MONOCYTES % (AUTO) 7 % (2-9); NEUTROPHILS # (AUTO) 7.53 x10^3/uL (1.8-6.8); NEUTROPHILS % (AUTO) 67 % (42-75); PLATELET COUNT 419 x10^3/uL (130-400); RED BLOOD COUNT 3.63 x10^6/uL (3.82-5.3); RED CELL DISTRIBUTION WIDTH 17.8 % (9.6-15.2)
[2019-10-16 05:40] LABS: CHLORIDE 110 mmol/L (98-107)
[2019-10-16 05:51] LABS: ALANINE AMINOTRANSFERASE 16 U/L (12-78); ALBUMIN 1.6 g/dL (3.4-5.0); ALKALINE PHOSPHATASE 71 U/L (45-117); ANION GAP 6 mmol/L (5-15); BILIRUBIN,TOTAL 0.4 mg/dL (0.2-1.0); CALCIUM 8.1 mg/dL (8.5-10.1); CREATININE 0.76 mg/dL (0.55-1.02); TOTAL PROTEIN 5.5 g/dL (6.4-8.2)
[2019-10-16] MEDS: SIMETHICONE 125 MG CHEW TAB PO SCH ×4 (06:04→20:32)
[2019-10-16] MEDS: MORPHINE SULFATE 4 MG/ML, 1ML IVPush PRN ×3 (06:06→22:28)
[2019-10-16] MEDS: MEROPENEM 1 GM in SODIUM CHLORIDE 0.9% 100 ML IV SCH ×3 (07:20→23:43)
[2019-10-16] MEDS: POTASSIUM CHLORIDE 20 MEQ TAB.ER.PRT PO SCH (08:00)
[2019-10-16 09:04] VITALS: BP 130/77
[2019-10-16] MEDS ORDERED: PRENATAL VIT/IRON/FA 1 EACH TABLET ONE (09:23)
[2019-10-16] MEDS ORDERED: FERROUS SULFATE 325 MG TABLET ONE ×3 (09:23→20:35)
[2019-10-16] MEDS: CHOLECALCIFEROL 1,000 UNIT TABLET PO SCH (09:29)
[2019-10-16] MEDS: PRENATAL VIT/IRON/FA 1 EACH TABLET PO SCH (09:29)
[2019-10-16] MEDS: FERROUS SULFATE 325 MG TABLET PO SCH ×2 (09:29→20:32)
[2019-10-16] MEDS ORDERED: MORPHINE SULFATE 4 MG/ML, 1ML ONE ×2 (13:09→22:26)
[2019-10-16] MEDS ORDERED: ACETAMINOPHEN 325 MG TABLET ONE (19:30)
[2019-10-16] MEDS: ACETAMINOPHEN 325 MG TABLET PO PRN (19:35)
[2019-10-16] MEDS: ENOXAPARIN 40 MG/0.4 ML SQ SCH (20:32)
[2019-10-16] MEDS ORDERED: ONDANSETRON 2MG/ML, 2ML ONE (20:49)
[2019-10-16] MEDS: ONDANSETRON 2MG/ML, 2ML IVPush PRN (20:52)
[2019-10-16] MEDS ORDERED: DEXTROSE 47%, 15GM GEL ONE (21:06)
[2019-10-17 05:44] LABS: ALANINE AMINOTRANSFERASE 22 U/L (12-78); ALBUMIN 1.6 g/dL (3.4-5.0); ALKALINE PHOSPHATASE 79 U/L (45-117); ANION GAP 9 mmol/L (5-15); BILIRUBIN,TOTAL 0.2 mg/dL (0.2-1.0); CALCIUM 8.1 mg/dL (8.5-10.1); CHLORIDE 109 mmol/L (98-107); CREATININE 0.58 mg/dL (0.55-1.02); TOTAL PROTEIN 5.5 g/dL (6.4-8.2)
[2019-10-17] MEDS ORDERED: MORPHINE SULFATE 4 MG/ML, 1ML ONE ×3 (05:46→20:49)
[2019-10-17] MEDS: MORPHINE SULFATE 4 MG/ML, 1ML IVPush PRN ×3 (05:48→21:01)
[2019-10-17] MEDS: SIMETHICONE 125 MG CHEW TAB PO SCH ×4 (06:29→20:55)
[2019-10-17 07:12] LABS: MEAN CORPUSCULAR HGB CONC 31.2 g/dL (32.4-35.8); MEAN CORPUSCULAR VOLUME 76.9 fL (80-100); MEAN PLATELET VOLUME 6.4 fL (7.4-10.4); PLATELET COUNT 434 x10^3/uL (130-400); RED BLOOD COUNT 3.71 x10^6/uL (3.82-5.3); RED CELL DISTRIBUTION WIDTH 17.6 % (9.6-15.2)
[2019-10-17 07:34] LABS: BASOPHILS # (AUTO) 0.01 x10^3/uL (0-0.1); BASOPHILS % (AUTO) 0 % (0-1); EOSINOPHILS # (AUTO) 0.19 x10^3/uL (0-0.4); EOSINOPHILS % (AUTO) 2 % (1-7); LYMPHOCYTES # (AUTO) 2.63 x10^3/uL (1-3.4); LYMPHOCYTES % (AUTO) 25 % (22-44); MD SCAN; MONOCYTES # (AUTO) 0.76 x10^3/uL (0.2-0.8); MONOCYTES % (AUTO) 7 % (2-9); NEUTROPHILS # (AUTO) 6.92 x10^3/uL (1.8-6.8); NEUTROPHILS % (AUTO) 66 % (42-75)
[2019-10-17] MEDS ORDERED: FERROUS SULFATE 325 MG TABLET ONE ×2 (07:55→19:26)
[2019-10-17] MEDS: FERROUS SULFATE 325 MG TABLET PO SCH ×2 (07:59→20:55)
[2019-10-17] MEDS: POTASSIUM CHLORIDE 20 MEQ TAB.ER.PRT PO SCH (07:59)
[2019-10-17] MEDS: MEROPENEM 1 GM in SODIUM CHLORIDE 0.9% 100 ML IV SCH ×3 (07:59→23:07)
[2019-10-17] MEDS ORDERED: ONDANSETRON 2MG/ML, 2ML ONE ×4 (08:06→20:00)
[2019-10-17] MEDS: ONDANSETRON 2MG/ML, 2ML IVPush PRN ×3 (08:09→20:06)
[2019-10-17 09:04] LABS: ALANINE AMINOTRANSFERASE 18 U/L (12-78); ALBUMIN 1.7 g/dL (3.4-5.0); ANION GAP 11 mmol/L (5-15); CALCIUM 8.3 mg/dL (8.5-10.1); CHLORIDE 109 mmol/L (98-107); CREATININE 0.57 mg/dL (0.55-1.02)
[2019-10-17 09:06] LABS: ALKALINE PHOSPHATASE 78 U/L (45-117); BILIRUBIN,TOTAL 0.1 mg/dL (0.2-1.0); TOTAL PROTEIN 5.4 g/dL (6.4-8.2)
[2019-10-17] MEDS ORDERED: PRENATAL VIT/IRON/FA 1 EACH TABLET ONE (11:04)
[2019-10-17] MEDS: PRENATAL VIT/IRON/FA 1 EACH TABLET PO SCH (11:07)
[2019-10-17] MEDS: CHOLECALCIFEROL 1,000 UNIT TABLET PO SCH (11:08)
[2019-10-17] MEDS ORDERED: METOCLOPRAMIDE 5 MG/ML, 2ML ONE (12:37)
[2019-10-17] MEDS ORDERED: METOCLOPRAMIDE 5 MG/ML, 2ML IVPush ONE (13:00)
[2019-10-17] MEDS: ENOXAPARIN 40 MG/0.4 ML SQ SCH (20:12)
[2019-10-17 20:19] VITALS: BP 136/81
[2019-10-18] MEDS ORDERED: ONDANSETRON 2MG/ML, 2ML ONE ×4 (05:01→17:12)
[2019-10-18] MEDS: ONDANSETRON 2MG/ML, 2ML IVPush PRN ×4 (05:08→17:17)
[2019-10-18] MEDS: MORPHINE SULFATE 4 MG/ML, 1ML IVPush PRN ×3 (05:35→19:28)
[2019-10-18] MEDS ORDERED: hydrALAzine 20 MG/ML, 1ML ONE (05:49)
[2019-10-18 05:50] LABS: ANION GAP 8 mmol/L (5-15); CALCIUM 8.7 mg/dL (8.5-10.1); CHLORIDE 108 mmol/L (98-107); CREATININE 0.67 mg/dL (0.55-1.02)
[2019-10-18 05:51] LABS: ALANINE AMINOTRANSFERASE 22 U/L (12-78); ALBUMIN 1.8 g/dL (3.4-5.0)
[2019-10-18 05:52] LABS: ALKALINE PHOSPHATASE 83 U/L (45-117); BILIRUBIN,TOTAL 0.1 mg/dL (0.2-1.0); TOTAL PROTEIN 6.1 g/dL (6.4-8.2)
[2019-10-18 05:55] LABS: BASOPHILS # (AUTO) 0.04 x10^3/uL (0-0.1); BASOPHILS % (AUTO) 0 % (0-1); EOSINOPHILS # (AUTO) 0.26 x10^3/uL (0-0.4); EOSINOPHILS % (AUTO) 2 % (1-7); LYMPHOCYTES # (AUTO) 2.71 x10^3/uL (1-3.4); LYMPHOCYTES % (AUTO) 25 % (22-44); MD NO; MEAN CORPUSCULAR HEMOGLOBIN 24.3 pg (27.0-34.8); MEAN CORPUSCULAR HGB CONC 31.9 g/dL (32.4-35.8); MEAN CORPUSCULAR VOLUME 76.2 fL (80-100); MEAN PLATELET VOLUME 6.6 fL (7.4-10.4); MONOCYTES # (AUTO) 0.65 x10^3/uL (0.2-0.8); MONOCYTES % (AUTO) 6 % (2-9); NEUTROPHILS # (AUTO) 7.12 x10^3/uL (1.8-6.8); NEUTROPHILS % (AUTO) 66 % (42-75); PLATELET COUNT 486 x10^3/uL (130-400); RED BLOOD COUNT 4.01 x10^6/uL (3.82-5.3); RED CELL DISTRIBUTION WIDTH 17.1 % (9.6-15.2)
[2019-10-18 07:30] VITALS: BP 124/79
[2019-10-18] MEDS: MEROPENEM 1 GM in SODIUM CHLORIDE 0.9% 100 ML IV SCH ×3 (07:30→23:11)
[2019-10-18] MEDS: SIMETHICONE 125 MG CHEW TAB PO SCH ×4 (07:51→21:12)
[2019-10-18] MEDS: POTASSIUM CHLORIDE 20 MEQ TAB.ER.PRT PO SCH (07:51)
[2019-10-18] MEDS ORDERED: FERROUS GLUCONATE 324 MG TABLET ONE (10:10)
[2019-10-18] MEDS ORDERED: PRENATAL VIT/IRON/FA 1 EACH TABLET ONE (10:11)
[2019-10-18] MEDS ORDERED: FERROUS SULFATE 325 MG TABLET ONE ×2 (10:11→21:09)
[2019-10-18 10:19] VITALS: BP 132/82
[2019-10-18] MEDS: FERROUS SULFATE 325 MG TABLET PO SCH ×2 (10:20→21:12)
[2019-10-18] MEDS: CHOLECALCIFEROL 1,000 UNIT TABLET PO SCH (10:20)
[2019-10-18] MEDS: PRENATAL VIT/IRON/FA 1 EACH TABLET PO SCH (10:20)
[2019-10-18] MEDS ORDERED: MORPHINE SULFATE 4 MG/ML, 1ML ONE ×2 (12:27→19:25)
[2019-10-18 13:47] VITALS: BP 158/89
[2019-10-18] MEDS: ENOXAPARIN 40 MG/0.4 ML SQ SCH (19:28)
[2019-10-18] MEDS ORDERED: DOCUSATE 100 MG CAPSULE ONE (21:08)
[2019-10-18 22:51] LABS: MICROSCOPIC AUTO
[2019-10-18 22:54] LABS: CULTURE INDICATED? NO
[2019-10-19] MEDS: PROMETHAZINE 25 MG SUPP PR PRN ×4 (00:47→20:06)
[2019-10-19] MEDS: MORPHINE SULFATE 4 MG/ML, 1ML IVPush PRN ×4 (00:47→20:43)
[2019-10-19] MEDS ORDERED: MORPHINE SULFATE 4 MG/ML, 1ML ONE ×3 (06:10→20:35)
[2019-10-19] MEDS: SIMETHICONE 125 MG CHEW TAB PO SCH ×4 (06:12→20:48)
[2019-10-19] MEDS: MEROPENEM 1 GM in SODIUM CHLORIDE 0.9% 100 ML IV SCH ×3 (08:42→23:31)
[2019-10-19] MEDS: POTASSIUM CHLORIDE 20 MEQ TAB.ER.PRT PO SCH (10:27)
[2019-10-19] MEDS: CHOLECALCIFEROL 1,000 UNIT TABLET PO SCH (10:28)
[2019-10-19] MEDS ORDERED: ACETAMINOPHEN 325 MG TABLET ONE ×2 (10:30→17:27)
[2019-10-19] MEDS ORDERED: PRENATAL VIT/IRON/FA 1 EACH TABLET ONE (10:30)
[2019-10-19] MEDS ORDERED: FERROUS SULFATE 325 MG TABLET ONE (10:31)
[2019-10-19] MEDS: PRENATAL VIT/IRON/FA 1 EACH TABLET PO SCH (10:32)
[2019-10-19] MEDS: ACETAMINOPHEN 325 MG TABLET PO PRN ×2 (10:32→17:30)
[2019-10-19] MEDS: FERROUS SULFATE 325 MG TABLET PO SCH (10:32)
[2019-10-19] MEDS: ENOXAPARIN 40 MG/0.4 ML SQ SCH (20:06)
[2019-10-20] MEDS ORDERED: MORPHINE SULFATE 4 MG/ML, 1ML ONE ×2 (02:27→08:23)
[2019-10-20] MEDS: MORPHINE SULFATE 4 MG/ML, 1ML IVPush PRN ×3 (02:33→08:30)
[2019-10-20] MEDS: PROMETHAZINE 25 MG SUPP PR PRN ×2 (03:05→11:04)
[2019-10-20] MEDS: SIMETHICONE 125 MG CHEW TAB PO SCH ×2 (07:42→11:46)
[2019-10-20] MEDS: MEROPENEM 1 GM in SODIUM CHLORIDE 0.9% 100 ML IV SCH (07:43)
[2019-10-20] MEDS: POTASSIUM CHLORIDE 20 MEQ TAB.ER.PRT PO SCH (08:30)
[2019-10-20] MEDS ORDERED: FOSFOMYCIN 3 GM PACKET PO ONE (09:30)
[2019-10-20] MEDS ORDERED: PRENATAL VIT/IRON/FA 1 EACH TABLET ONE (09:49)
[2019-10-20] MEDS ORDERED: FERROUS SULFATE 325 MG TABLET ONE (09:49)
[2019-10-20] MEDS: FERROUS SULFATE 325 MG TABLET PO SCH ×2 (09:52→09:59)
[2019-10-20] MEDS: PRENATAL VIT/IRON/FA 1 EACH TABLET PO SCH (09:52)
[2019-10-20] MEDS: CHOLECALCIFEROL 1,000 UNIT TABLET PO SCH (09:55)
[2019-10-20] MEDS ORDERED: FOSF3PAC PO ×2 (13:50)
[2019-10-20] MEDS ORDERED: PROM25SU35 PR (13:50)
[2019-10-20] MEDS ORDERED: FERR325T5 PO (13:50)
[2019-10-20] MEDS ORDERED: ENOX40SY4 SQ ×2 (15:00)
== END 2019-10-20 15:40 | disposition home or self-care (01) | DRG 832 ==
LOC: LDOP 10:50 → UNDOADMOB 13:21 → LDIP 13:21 → UNDOADMOB 13:28 → LDIP 13:28 → 2NE 17:42 → LDIP 17:42 → INTOOBSV 10-15 16:20 → 2NE 10-15 16:20 → OBSVTOIN 10-15 16:20 → UNDODISIN 10-20 15:40
PROVIDERS: ADMIT Obstetrics & Gynecology; ATTEND Obstetrics & Gynecology
DX: O24.013 Pre-existing type 1 diabetes mellitus, in pregnancy, third trimester (principal); O10.913 Unspecified pre-existing hypertension complicating pregnancy, third trimester; O40.3XX0 Polyhydramnios, third trimester, not applicable or unspecified; E10.43 Type 1 diabetes mellitus with diabetic autonomic (poly)neuropathy; E10.649 Type 1 diabetes mellitus with hypoglycemia without coma; R19.7 Diarrhea, unspecified; K31.84 Gastroparesis; O26.893 Other specified pregnancy related conditions, third trimester; R30.0 Dysuria; O99.013 Anemia complicating pregnancy, third trimester; D64.9 Anemia, unspecified; Z88.0 Allergy status to penicillin; Z86.718 Personal history of other venous thrombosis and embolism; Z3A.29 29 weeks gestation of pregnancy; Z83.3 Family history of diabetes mellitus; Z79.01 Long term (current) use of anticoagulants; Z93.0 Tracheostomy status; Z87.440 Personal history of urinary (tract) infections
CPT/HCPCS: 71045; 76770; 76815; 80053; 80307; 81001; 82565; 82570; 82962; 83605; 83735; 84145; 84156; 84550; 85025; 87046; 87086; 87324; 87427; 93005; G0378; J1650; J2185; J2405; J3010; J0360; J1610; J2270; J2765; J3475

== ENCOUNTER → 2019-10-26 | Outpatient (CLI) | payer OTHER, MEDICAID ==
[~2019-10-26] MED LIST changes: -DEXTROSE 50%, 50ML SYRINGE ONE; +FOSF3PAC PO
[2019-10-26 12:39] LABS: BASOPHILS # (AUTO) 0.05 x10^3/uL (0-0.1); BASOPHILS % (AUTO) 0 % (0-1); EOSINOPHILS # (AUTO) 0.22 x10^3/uL (0-0.4); EOSINOPHILS % (AUTO) 2 % (1-7); LYMPHOCYTES # (AUTO) 2.79 x10^3/uL (1-3.4); LYMPHOCYTES % (AUTO) 26 % (22-44); MD NO; MEAN CORPUSCULAR HEMOGLOBIN 24.8 pg (27.0-34.8); MEAN CORPUSCULAR HGB CONC 31.5 g/dL (32.4-35.8); MEAN CORPUSCULAR VOLUME 78.8 fL (80-100); MEAN PLATELET VOLUME 6.9 fL (7.4-10.4); MONOCYTES # (AUTO) 0.65 x10^3/uL (0.2-0.8); MONOCYTES % (AUTO) 6 % (2-9); NEUTROPHILS # (AUTO) 7.22 x10^3/uL (1.8-6.8); NEUTROPHILS % (AUTO) 66 % (42-75); PLATELET COUNT 393 x10^3/uL (130-400); RED BLOOD COUNT 4.43 x10^6/uL (3.82-5.3)
[2019-10-26 12:45] LABS: MICROSCOPIC INDICATED
[2019-10-26 13:00] LABS: CREATININE,URINE RANDOM 73.3 mg/dL
[2019-10-26 13:01] LABS: ALBUMIN 2.1 g/dL (3.4-5.0); ANION GAP 8 mmol/L (5-15); CALCIUM 9.5 mg/dL (8.5-10.1); CHLORIDE 106 mmol/L (98-107); CREATININE 0.92 mg/dL (0.55-1.02)
[2019-10-26 13:08] LABS: HEMOGLOBIN A1C 7.9 % (4.2-6.3)
[2019-10-27 14:51] LABS: ANA SCREEN POSITIVE (Negative); ANA TITER 1:40; ANTI-NUCLEAR ANTIBODY PATTERN SPECKLED
== END | disposition home or self-care (01) ==
LOC: LAB 12:14
PROVIDERS: ATTEND Internal Medicine Nephrology
DX: Z33.1 Pregnant state, incidental (principal); I10 Essential (primary) hypertension; R60.9 Edema, unspecified; R31.9 Hematuria, unspecified; R80.9 Proteinuria, unspecified; F12.10 Cannabis abuse, uncomplicated
CPT/HCPCS: 36415; 80069; 81001; 82306; 82570; 83036; 83735; 84156; 84550; 85025; 86038; 86039; 86160; 86162; 86225; 87086

== ENCOUNTER 2019-11-10 14:25 | Inpatient (IN) | payer OTHER, MEDICAID ==
[~2019-11-10] VITALS: Ht 160 cm; Wt 78.7 kg
[2019-11-10] MEDS ORDERED: GLUCAGON 1 MG ONE (14:49)
[2019-11-10] MEDS ORDERED: DEXTROSE 47%, 15GM GEL ONE (14:50)
[2019-11-10 15:11] LABS: MICROSCOPIC AUTO
[2019-11-10] MEDS ORDERED: NITR100C56 PO (15:25)
[2019-11-10] MEDS ORDERED: SODIUM CHLORIDE 0.9% 1,000ML IVBOLUS ONE (15:30)
[2019-11-10 15:33] LABS: BASOPHILS # (AUTO) 0.03 x10^3/uL (0-0.1); BASOPHILS % (AUTO) 0 % (0-1); EOSINOPHILS # (AUTO) 0.17 x10^3/uL (0-0.4); EOSINOPHILS % (AUTO) 1 % (1-7); MD NO; MEAN CORPUSCULAR HGB CONC 31.3 g/dL (32.4-35.8)
[2019-11-10 15:44] LABS: ALANINE AMINOTRANSFERASE 18 U/L (12-78); ALBUMIN 1.9 g/dL (3.4-5.0); ANION GAP 8 mmol/L (5-15); CHLORIDE 113 mmol/L (98-107)
[2019-11-10 15:47] LABS: ALKALINE PHOSPHATASE 106 U/L (45-117); BILIRUBIN,TOTAL 0.2 mg/dL (0.2-1.0); TOTAL PROTEIN 6.5 g/dL (6.4-8.2)
[2019-11-10] MEDS ORDERED: PLEASE ENTER HEIGHT AND WEIGHT MC SCH (16:00)
[2019-11-10] MEDS ORDERED: GLUCAGON 1 MG IM ONE (16:00)
[2019-11-10] MEDS ORDERED: D5%-0.9% NACL 1,000 ML IV SCH (16:00)
[2019-11-10] MEDS ORDERED: GLUCAGON 1 MG IVPush ONE (16:00)
[2019-11-10] MEDS ORDERED: DEXTROSE 10% 1,000 ML IV SCH ×2 (16:00→16:05)
[2019-11-10 16:13] VITALS: BP 127/90
[2019-11-10 16:29] LABS: AMPHETAMINE SCREEN, URINE Negative (Negative); BARBITURATE SCREEN, URINE Negative (Negative); BENZODIAZEPINE SCREEN, URINE Negative (Negative); CANNABINOID SCREEN, URINE Negative (Negative); COCAINE SCREEN, URINE Negative (Negative); METHADONE SCREEN, URINE Negative (Negative); OPIATE SCREEN, URINE Negative (Negative)
[2019-11-10] MEDS ORDERED: GLUCAGON 1 MG IM PRN (16:30)
[2019-11-10 16:48] LABS: FREE T4 (FREE THYROXINE) 0.84 ng/dL (0.76-1.46)
[2019-11-10 17:07] LABS: LYMPHOCYTES # (AUTO) 2.82 x10^3/uL (1-3.4); LYMPHOCYTES % (AUTO) 21 % (22-44); MEAN CORPUSCULAR HEMOGLOBIN 24.2 pg (27.0-34.8); MEAN CORPUSCULAR VOLUME 77.3 fL (80-100); MEAN PLATELET VOLUME 7.9 fL (7.4-10.4); MONOCYTES # (AUTO) 0.83 x10^3/uL (0.2-0.8); MONOCYTES % (AUTO) 6 % (2-9); NEUTROPHILS # (AUTO) 9.68 x10^3/uL (1.8-6.8); NEUTROPHILS % (AUTO) 72 % (42-75); PLATELET COUNT 307 x10^3/uL (130-400); RED BLOOD COUNT 4.37 x10^6/uL (3.82-5.3); RED CELL DISTRIBUTION WIDTH 18.2 % (9.6-15.2)
[2019-11-10] MEDS ORDERED: BETAMETHASONE 6 MG/ML, 5ML IM ONE (17:08)
[2019-11-10] MEDS: BETAMETHASONE 6 MG/ML, 5ML IM SCH (17:19)
[2019-11-10] MEDS: INSULIN LISPRO 100 UNITS/ML, PEN SQ-INSULIN SCH ×2 (17:30→21:00)
[2019-11-10] MEDS ORDERED: ACETAMINOPHEN 325 MG TABLET ONE ×2 (17:33→23:57)
[2019-11-10] MEDS ORDERED: CALCIUM CARBONATE 500 MG TAB.CHEW ONE ×2 (17:33→22:06)
[2019-11-10] MEDS: ACETAMINOPHEN 325 MG TABLET PO PRN (17:34)
[2019-11-10] MEDS: CALCIUM CARBONATE 500 MG TAB.CHEW PO PRN ×2 (17:35→22:07)
[2019-11-10] MEDS: DEXTROSE 4 GM TAB.CHEW PO PRN ×2 (19:14→21:34)
[2019-11-10 19:32] VITALS: BP 153/93
[2019-11-10] MEDS ORDERED: NITROFURANTOIN (MACROBID) 100 MG CAPSULE PO SCH (20:00)
[2019-11-10] MEDS ORDERED: ASPIRIN 81 MG TABLET CHEW ONE (20:19)
[2019-11-10] MEDS ORDERED: PRENATAL VIT/IRON/FA 1 EACH TABLET ONE (20:19)
[2019-11-10] MEDS ORDERED: FERROUS SULFATE 325 MG TABLET ONE (20:19)
[2019-11-10] MEDS ORDERED: NITROFURANTOIN (MACROBID) 100 MG CAPSULE ONE (20:19)
[2019-11-10] MEDS: NITROFURANTOIN (MACROBID) 100 MG CAPSULE PO SCH (20:23)
[2019-11-10] MEDS: FERROUS SULFATE 325 MG TABLET PO SCH (20:23)
[2019-11-10] MEDS: ENOXAPARIN 40 MG/0.4 ML SQ SCH (20:23)
[2019-11-10] MEDS: PRENATAL VIT/IRON/FA 1 EACH TABLET PO SCH (20:24)
[2019-11-10] MEDS: ASPIRIN 81 MG TABLET EC PO SCH (20:24)
[2019-11-10] MEDS: SODIUM CHLORIDE FLUSH 10ML SYR IVF SCH (20:25)
[2019-11-10 20:26] VITALS: BP 138/97
[2019-11-10] MEDS: CHOLECALCIFEROL 1,000 UNIT TABLET PO SCH (20:33)
[2019-11-10] MEDS ORDERED: INSULIN REGULAR 100 UNITS/ML, 3ML VIAL SQ-INSULIN SCH (21:00)
[2019-11-10 23:59] VITALS: BP 176/108
[2019-11-11] MEDS ORDERED: CALCIUM CARBONATE 500 MG TAB.CHEW ONE ×4 (02:46→23:26)
[2019-11-11] MEDS: CALCIUM CARBONATE 500 MG TAB.CHEW PO PRN ×4 (02:47→23:27)
[2019-11-11 04:17] VITALS: BP 129/87
[2019-11-11 05:15] LABS: BASOPHILS % (AUTO) 0 % (0-1); EOSINOPHILS # (AUTO) 0.22 x10^3/uL (0-0.4); EOSINOPHILS % (AUTO) 2 % (1-7); LYMPHOCYTES # (AUTO) 1.39 x10^3/uL (1-3.4); LYMPHOCYTES % (AUTO) 12 % (22-44); MD NO; MEAN CORPUSCULAR HEMOGLOBIN 24.5 pg (27.0-34.8); MEAN CORPUSCULAR HGB CONC 31.4 g/dL (32.4-35.8); MEAN CORPUSCULAR VOLUME 77.9 fL (80-100); MEAN PLATELET VOLUME 7.4 fL (7.4-10.4); MONOCYTES % (AUTO) 3 % (2-9); NEUTROPHILS # (AUTO) 9.96 x10^3/uL (1.8-6.8); NEUTROPHILS % (AUTO) 84 % (42-75); PLATELET COUNT 286 x10^3/uL (130-400); RED CELL DISTRIBUTION WIDTH 17.7 % (9.6-15.2)
[2019-11-11 05:28] LABS: ALANINE AMINOTRANSFERASE 17 U/L (12-78); ALBUMIN 1.8 g/dL (3.4-5.0); ANION GAP 10 mmol/L (5-15); CHLORIDE 109 mmol/L (98-107)
[2019-11-11 05:30] LABS: ALKALINE PHOSPHATASE 101 U/L (45-117); BILIRUBIN,TOTAL 0.2 mg/dL (0.2-1.0); TOTAL PROTEIN 5.9 g/dL (6.4-8.2)
[2019-11-11] MEDS ORDERED: FERROUS SULFATE 325 MG TABLET ONE ×2 (08:20→20:35)
[2019-11-11] MEDS: FERROUS SULFATE 325 MG TABLET PO SCH ×2 (08:24→20:38)
[2019-11-11] MEDS: PROMETHAZINE 25 MG SUPP PR PRN ×2 (08:24→18:48)
[2019-11-11] MEDS ORDERED: ACETAMINOPHEN 325 MG TABLET ONE ×2 (08:33→21:47)
[2019-11-11] MEDS: ACETAMINOPHEN 325 MG TABLET PO PRN ×3 (08:34→22:31)
[2019-11-11] MEDS ORDERED: CHOLECALCIFEROL 1,000 UNIT TABLET PO SCH (09:00)
[2019-11-11] MEDS ORDERED: ASPIRIN 81 MG TABLET EC PO SCH (09:00)
[2019-11-11] MEDS ORDERED: PRENATAL VIT/IRON/FA 1 EACH TABLET PO SCH (09:00)
[2019-11-11] MEDS ORDERED: NITROFURANTOIN (MACROBID) 100 MG CAPSULE PO SCH (09:00)
[2019-11-11] MEDS: SODIUM CHLORIDE FLUSH 10ML SYR IVF SCH ×2 (09:00→21:00)
[2019-11-11 09:06] VITALS: BP 156/94
[2019-11-11] MEDS: INSULIN LISPRO 100 UNITS/ML, PEN SQ-INSULIN SCH ×4 (11:00→21:00)
[2019-11-11] MEDS ORDERED: hydrALAzine 20 MG/ML, 1ML IVPush PRN (11:00)
[2019-11-11 12:04] VITALS: BP 133/85
[2019-11-11] MEDS ORDERED: DEXTROSE 10% 1,000 ML IV SCH ×3 (16:05→21:30)
[2019-11-11] MEDS ORDERED: DEXTROSE 47%, 15GM GEL ONE (16:53)
[2019-11-11] MEDS: DEXTROSE 47%, 15GM GEL PO PRN (16:54)
[2019-11-11] MEDS: BETAMETHASONE 6 MG/ML, 5ML IM SCH (17:12)
[2019-11-11] MEDS: DEXTROSE 50%, 50ML SYRINGE IVPush PRN ×2 (17:32→17:43)
[2019-11-11] MEDS ORDERED: DEXTROSE 10%, 1,000ML IV SCH (18:30)
[2019-11-11 19:55] VITALS: BP 131/78
[2019-11-11] MEDS ORDERED: PRENATAL VIT/IRON/FA 1 EACH TABLET ONE (20:35)
[2019-11-11] MEDS ORDERED: NITROFURANTOIN (MACROBID) 100 MG CAPSULE ONE (20:36)
[2019-11-11] MEDS: PRENATAL VIT/IRON/FA 1 EACH TABLET PO SCH (20:38)
[2019-11-11] MEDS: ASPIRIN 81 MG TABLET EC PO SCH (20:38)
[2019-11-11] MEDS: NITROFURANTOIN (MACROBID) 100 MG CAPSULE PO SCH (20:38)
[2019-11-11] MEDS: CHOLECALCIFEROL 1,000 UNIT TABLET PO SCH (20:39)
[2019-11-11] MEDS: ENOXAPARIN 40 MG/0.4 ML SQ SCH (20:40)
[2019-11-11] MEDS ORDERED: ONDANSETRON 2MG/ML, 2ML ONE (23:24)
[2019-11-12 00:14] VITALS: BP 134/89
[2019-11-12 05:02] LABS: BASOPHILS # (AUTO) 0.01 x10^3/uL (0-0.1); BASOPHILS % (AUTO) 0 % (0-1); EOSINOPHILS # (AUTO) 0.03 x10^3/uL (0-0.4); EOSINOPHILS % (AUTO) 0 % (1-7); LYMPHOCYTES # (AUTO) 1.48 x10^3/uL (1-3.4); LYMPHOCYTES % (AUTO) 9 % (22-44); MD NO; MEAN CORPUSCULAR HEMOGLOBIN 24.4 pg (27.0-34.8); MEAN CORPUSCULAR HGB CONC 31.8 g/dL (32.4-35.8); MEAN CORPUSCULAR VOLUME 76.9 fL (80-100); MEAN PLATELET VOLUME 7.5 fL (7.4-10.4); MONOCYTES # (AUTO) 0.66 x10^3/uL (0.2-0.8); MONOCYTES % (AUTO) 4 % (2-9); NEUTROPHILS # (AUTO) 13.81 x10^3/uL (1.8-6.8); NEUTROPHILS % (AUTO) 86 % (42-75); PLATELET COUNT 290 x10^3/uL (130-400); RED BLOOD COUNT 3.85 x10^6/uL (3.82-5.3); RED CELL DISTRIBUTION WIDTH 18.1 % (9.6-15.2)
[2019-11-12 05:07] LABS: ANION GAP 8 mmol/L (5-15); CALCIUM 8.8 mg/dL (8.5-10.1); CHLORIDE 112 mmol/L (98-107); CREATININE 0.96 mg/dL (0.55-1.02)
[2019-11-12 06:32] VITALS: BP 134/78
[2019-11-12] MEDS ORDERED: ACETAMINOPHEN 325 MG TABLET ONE ×2 (07:49→21:10)
[2019-11-12] MEDS: ACETAMINOPHEN 325 MG TABLET PO PRN ×2 (07:52→21:36)
[2019-11-12] MEDS: INSULIN LISPRO 100 UNITS/ML, PEN SQ-INSULIN SCH ×4 (07:52→21:00)
[2019-11-12] MEDS: SODIUM CHLORIDE FLUSH 10ML SYR IVF SCH ×2 (09:00→21:00)
[2019-11-12] MEDS ORDERED: FERROUS SULFATE 325 MG TABLET ONE ×2 (10:12→20:10)
[2019-11-12] MEDS: FERROUS SULFATE 325 MG TABLET PO SCH ×2 (10:13→21:33)
[2019-11-12] MEDS ORDERED: CALCIUM CARBONATE 500 MG TAB.CHEW ONE (10:33)
[2019-11-12] MEDS: CALCIUM CARBONATE 500 MG TAB.CHEW PO PRN (10:34)
[2019-11-12 11:00] VITALS: BP 133/89
[2019-11-12] MEDS ORDERED: MAGNESIUM SULFATE PMX 2GM/50ML 50 ML IV ONE (11:30)
[2019-11-12] MEDS ORDERED: DEXTROSE 47%, 15GM GEL ONE (12:49)
[2019-11-12] MEDS: DEXTROSE 47%, 15GM GEL PO PRN (12:52)
[2019-11-12 18:05] VITALS: BP 137/76
[2019-11-12 19:19] VITALS: BP 137/96
[2019-11-12] MEDS ORDERED: PRENATAL VIT/IRON/FA 1 EACH TABLET ONE (20:10)
[2019-11-12] MEDS ORDERED: ONDANSETRON 2MG/ML, 2ML ONE (20:10)
[2019-11-12] MEDS ORDERED: NITROFURANTOIN (MACROBID) 100 MG CAPSULE ONE (20:10)
[2019-11-12] MEDS: ASPIRIN 81 MG TABLET EC PO SCH (21:00)
[2019-11-12] MEDS: PROMETHAZINE 25 MG SUPP PR PRN (21:01)
[2019-11-12] MEDS: PRENATAL VIT/IRON/FA 1 EACH TABLET PO SCH (21:33)
[2019-11-12] MEDS: NITROFURANTOIN (MACROBID) 100 MG CAPSULE PO SCH (21:33)
[2019-11-12] MEDS: ENOXAPARIN 40 MG/0.4 ML SQ SCH (21:35)
[2019-11-12] MEDS: CHOLECALCIFEROL 1,000 UNIT TABLET PO SCH (21:35)
[2019-11-12 23:33] VITALS: BP 135/77
[2019-11-13 05:51] VITALS: BP 124/77
[2019-11-13] MEDS: INSULIN LISPRO 100 UNITS/ML, PEN SQ-INSULIN SCH (06:15)
[2019-11-13 06:18] LABS: ALANINE AMINOTRANSFERASE 19 U/L (12-78); ALBUMIN 1.7 g/dL (3.4-5.0); ANION GAP 10 mmol/L (5-15); CALCIUM 8.6 mg/dL (8.5-10.1); CHLORIDE 108 mmol/L (98-107); CREATININE 0.99 mg/dL (0.55-1.02)
[2019-11-13 06:20] LABS: ALKALINE PHOSPHATASE 94 U/L (45-117); BASOPHILS # (AUTO) 0.02 x10^3/uL (0-0.1); BASOPHILS % (AUTO) 0 % (0-1); BILIRUBIN,TOTAL 0.1 mg/dL (0.2-1.0); EOSINOPHILS # (AUTO) 0.15 x10^3/uL (0-0.4); EOSINOPHILS % (AUTO) 1 % (1-7); LYMPHOCYTES # (AUTO) 2.78 x10^3/uL (1-3.4); LYMPHOCYTES % (AUTO) 19 % (22-44); MD NO; MEAN CORPUSCULAR HEMOGLOBIN 24.1 pg (27.0-34.8); MEAN CORPUSCULAR HGB CONC 31.6 g/dL (32.4-35.8); MEAN CORPUSCULAR VOLUME 76.4 fL (80-100); MEAN PLATELET VOLUME 7.4 fL (7.4-10.4); MONOCYTES # (AUTO) 1.05 x10^3/uL (0.2-0.8); MONOCYTES % (AUTO) 7 % (2-9); NEUTROPHILS # (AUTO) 10.46 x10^3/uL (1.8-6.8); NEUTROPHILS % (AUTO) 72 % (42-75); PLATELET COUNT 303 x10^3/uL (130-400); RED BLOOD COUNT 3.73 x10^6/uL (3.82-5.3); RED CELL DISTRIBUTION WIDTH 18.5 % (9.6-15.2); TOTAL PROTEIN 5.6 g/dL (6.4-8.2)
[2019-11-13] MEDS ORDERED: FERROUS SULFATE 325 MG TABLET ONE ×2 (07:46→21:15)
[2019-11-13] MEDS: SODIUM CHLORIDE FLUSH 10ML SYR IVF SCH ×2 (09:00→21:00)
[2019-11-13] MEDS: FERROUS SULFATE 325 MG TABLET PO SCH ×2 (10:34→21:32)
[2019-11-13 11:33] VITALS: BP 158/97
[2019-11-13] MEDS ORDERED: NEWBORN KIT ONE (12:08)
[2019-11-13] MEDS ORDERED: MAGNESIUM SULFATE PMX 2GM/50ML 50 ML IV ONE (18:00)
[2019-11-13] MEDS ORDERED: ASPIRIN 81 MG TABLET EC ONE (21:15)
[2019-11-13] MEDS ORDERED: PRENATAL VIT/IRON/FA 1 EACH TABLET ONE (21:15)
[2019-11-13] MEDS ORDERED: NITROFURANTOIN (MACROBID) 100 MG CAPSULE ONE (21:15)
[2019-11-13 21:30] VITALS: BP 139/89
[2019-11-13] MEDS: ENOXAPARIN 40 MG/0.4 ML SQ SCH (21:31)
[2019-11-13] MEDS: NITROFURANTOIN (MACROBID) 100 MG CAPSULE PO SCH (21:32)
[2019-11-13] MEDS: ASPIRIN 81 MG TABLET EC PO SCH (21:32)
[2019-11-13] MEDS: PRENATAL VIT/IRON/FA 1 EACH TABLET PO SCH (21:32)
[2019-11-13] MEDS: CHOLECALCIFEROL 1,000 UNIT TABLET PO SCH (21:36)
[2019-11-13] MEDS: PROMETHAZINE 25 MG SUPP PR PRN (22:18)
[2019-11-14] MEDS: SODIUM CHLORIDE FLUSH 10ML SYR IVF SCH ×2 (09:00→21:00)
[2019-11-14 09:15] VITALS: BP 139/84
[2019-11-14] MEDS ORDERED: FERROUS SULFATE 325 MG TABLET ONE ×2 (09:20→20:23)
[2019-11-14] MEDS: FERROUS SULFATE 325 MG TABLET PO SCH ×2 (10:16→21:05)
[2019-11-14 12:14] VITALS: BP 145/94
[2019-11-14 20:02] VITALS: BP 155/85
[2019-11-14] MEDS ORDERED: ASPIRIN 81 MG TABLET EC ONE (20:22)
[2019-11-14] MEDS ORDERED: NITROFURANTOIN (MACROBID) 100 MG CAPSULE ONE (20:23)
[2019-11-14] MEDS ORDERED: PRENATAL VIT/IRON/FA 1 EACH TABLET ONE (20:27)
[2019-11-14] MEDS: PROMETHAZINE 25 MG SUPP PR PRN (20:38)
[2019-11-14] MEDS: INSULIN LISPRO 100 UNITS/ML, PEN SQ-INSULIN SCH (20:45)
[2019-11-14] MEDS ORDERED: INSULIN LISPRO 100 UNITS/ML, PEN SQ-INSULIN SCH ×2 (21:00)
[2019-11-14] MEDS: PRENATAL VIT/IRON/FA 1 EACH TABLET PO SCH (21:05)
[2019-11-14] MEDS: ENOXAPARIN 40 MG/0.4 ML SQ SCH (21:05)
[2019-11-14] MEDS: CHOLECALCIFEROL 1,000 UNIT TABLET PO SCH (21:05)
[2019-11-14] MEDS: NITROFURANTOIN (MACROBID) 100 MG CAPSULE PO SCH (21:05)
[2019-11-14] MEDS: ASPIRIN 81 MG TABLET EC PO SCH (21:05)
[2019-11-15] VITALS: BP 144/88
[2019-11-15 06:14] VITALS: BP 140/93
[2019-11-15] MEDS: INSULIN LISPRO 100 UNITS/ML, PEN SQ-INSULIN SCH ×4 (06:15→20:47)
[2019-11-15] MEDS ORDERED: FERROUS SULFATE 325 MG TABLET ONE ×2 (09:06→20:40)
[2019-11-15] MEDS: SODIUM CHLORIDE FLUSH 10ML SYR IVF SCH ×2 (09:07→20:47)
[2019-11-15] MEDS: FERROUS SULFATE 325 MG TABLET PO SCH ×2 (09:07→20:42)
[2019-11-15] MEDS ORDERED: ACETAMINOPHEN 325 MG TABLET ONE (09:11)
[2019-11-15] MEDS: ACETAMINOPHEN 325 MG TABLET PO PRN (09:12)
[2019-11-15 09:17] VITALS: BP 147/105
[2019-11-15] MEDS: D5%-0.9% NACL 1,000 ML IV SCH ×2 (12:02→15:30)
[2019-11-15] MEDS ORDERED: D5%-0.9% NACL 1,000 ML IV SCH (15:30)
[2019-11-15 15:57] LABS: ANION GAP 6 mmol/L (5-15); CALCIUM 8.5 mg/dL (8.5-10.1); CHLORIDE 111 mmol/L (98-107); CREATININE 0.74 mg/dL (0.55-1.02)
[2019-11-15] MEDS: ENOXAPARIN 40 MG/0.4 ML SQ SCH (20:37)
[2019-11-15] MEDS ORDERED: NITROFURANTOIN (MACROBID) 100 MG CAPSULE ONE (20:39)
[2019-11-15] MEDS ORDERED: ASPIRIN 81 MG TABLET EC ONE (20:39)
[2019-11-15] MEDS ORDERED: PRENATAL VIT/IRON/FA 1 EACH TABLET ONE (20:40)
[2019-11-15] MEDS: PROMETHAZINE 25 MG SUPP PR PRN (20:41)
[2019-11-15] MEDS: NITROFURANTOIN (MACROBID) 100 MG CAPSULE PO SCH (20:42)
[2019-11-15] MEDS: ASPIRIN 81 MG TABLET EC PO SCH (20:42)
[2019-11-15] MEDS: CHOLECALCIFEROL 1,000 UNIT TABLET PO SCH (20:42)
[2019-11-15] MEDS: PRENATAL VIT/IRON/FA 1 EACH TABLET PO SCH (20:43)
[2019-11-15 20:50] VITALS: BP 148/98
[2019-11-15] MEDS ORDERED: NEWBORN KIT ONE (22:14)
[2019-11-16 00:06] VITALS: BP 145/91
[2019-11-16 07:18] LABS: ANION GAP 9 mmol/L (5-15); CALCIUM 8.1 mg/dL (8.5-10.1); CHLORIDE 110 mmol/L (98-107); CREATININE 0.76 mg/dL (0.55-1.02)
[2019-11-16 07:20] LABS: BASOPHILS # (AUTO) 0.02 x10^3/uL (0-0.1); BASOPHILS % (AUTO) 0 % (0-1); EOSINOPHILS # (AUTO) 0.16 x10^3/uL (0-0.4); EOSINOPHILS % (AUTO) 1 % (1-7); LYMPHOCYTES # (AUTO) 3.15 x10^3/uL (1-3.4); LYMPHOCYTES % (AUTO) 21 % (22-44); MD NO; MEAN CORPUSCULAR HEMOGLOBIN 24.2 pg (27.0-34.8); MEAN CORPUSCULAR HGB CONC 31.8 g/dL (32.4-35.8); MEAN CORPUSCULAR VOLUME 76.1 fL (80-100); MEAN PLATELET VOLUME 6.9 fL (7.4-10.4); MONOCYTES # (AUTO) 1.17 x10^3/uL (0.2-0.8); MONOCYTES % (AUTO) 8 % (2-9); NEUTROPHILS # (AUTO) 10.63 x10^3/uL (1.8-6.8); NEUTROPHILS % (AUTO) 70 % (42-75); PLATELET COUNT 376 x10^3/uL (130-400); RED CELL DISTRIBUTION WIDTH 18.4 % (9.6-15.2)
[2019-11-16] MEDS: PRENATAL VIT/IRON/FA 1 EACH TABLET PO SCH (09:00)
[2019-11-16] MEDS: FERROUS SULFATE 325 MG TABLET PO SCH ×2 (09:00→21:00)
[2019-11-16] MEDS ORDERED: LACTATED RINGERS 1,000 ML IV SCH (10:17)
[2019-11-16] MEDS ORDERED: SODIUM CITRATE/CITRIC ACID 30 ML UDC PO ONE (10:30)
[2019-11-16] MEDS ORDERED: METOCLOPRAMIDE 5 MG/ML, 2ML IV ONE (10:30)
[2019-11-16] MEDS ORDERED: LACTATED RINGERS 1,000 ML IVBOLUS ONE (10:30)
[2019-11-16] MEDS ORDERED: SODIUM CHLORIDE 0.9% 1,000ML IVBOLUS ONE (11:00)
[2019-11-16] MEDS ORDERED: SODIUM CHLORIDE 0.9% 1,000 ML IV SCH (11:00)
[2019-11-16] MEDS: INSULIN LISPRO 100 UNITS/ML, PEN SQ-INSULIN SCH ×4 (11:00→21:00)
[2019-11-16] MEDS ORDERED: FENTANYL PF 100 MCG/2ML ONE ×2 (11:56→14:34)
[2019-11-16] MEDS ORDERED: METOCLOPRAMIDE 5 MG/ML, 2ML ONE (12:06)
[2019-11-16] MEDS ORDERED: SODIUM CITRATE/CITRIC ACID 30 ML UDC ONE (12:07)
[2019-11-16] MEDS ORDERED: CLINDAMYCIN PMX 900MG/50ML 50 ML ONE (12:32)
[2019-11-16] MEDS ORDERED: OXYTOCIN 10 UNITS/ML, 1ML ONE (13:37)
[2019-11-16] MEDS ORDERED: OXYTOCIN 30U/ 0.9% NaCL 500ML 500 ML ONE (13:41)
[2019-11-16] MEDS ORDERED: HYDROmorphone 2 MG/ML, 1ML IVPush PRN (14:00)
[2019-11-16] MEDS ORDERED: DEXAMETHASONE 4 MG/ML, 1ML IV PRN (14:00)
[2019-11-16] MEDS ORDERED: OXYcodone 5 MG/5 ML ORAL.SOL UDC PO PRN (14:00)
[2019-11-16] MEDS ORDERED: hydrALAzine 20 MG/ML, 1ML IV PRN (14:00)
[2019-11-16] MEDS ORDERED: LABETALOL 5MG/ML, 20ML IV PRN (14:00)
[2019-11-16] MEDS ORDERED: DIPHENHYDRAMINE 50 MG/ML, 1ML IVPush PRN (14:00)
[2019-11-16] MEDS ORDERED: EPHEDRINE 50 MG/ML, 1ML IVPush PRN (14:00)
[2019-11-16] MEDS ORDERED: ONDANSETRON 2MG/ML, 2ML IV PRN ×2 (14:00→16:30)
[2019-11-16] MEDS ORDERED: MISOPROSTOL 200 MCG TABLET ONE (14:21)
[2019-11-16] MEDS: FENTANYL PF 100 MCG/2ML IV PRN ×2 (14:38→15:25)
[2019-11-16] MEDS ORDERED: HYDROmorphone 2 MG/ML, 1ML ONE (15:34)
[2019-11-16] MEDS ORDERED: OXYcodone 5 MG/5 ML ORAL.SOL UDC ONE (15:34)
[2019-11-16] MEDS: OXYTOCIN 30U/ 0.9% NaCL 500ML 500 ML IV SCH (16:00)
[2019-11-16] MEDS: SODIUM CHLORIDE 0.9% 1,000 ML IV SCH (16:00)
[2019-11-16] MEDS ORDERED: IBUPROFEN 600 MG TABLET PO PRN (16:30)
[2019-11-16] MEDS ORDERED: morphine SULFATE 10 MG/ML, 1ML ONE ×2 (17:08→20:25)
[2019-11-16] MEDS: MORPHINE SULFATE 4 MG/ML, 1ML IVPush PRN ×2 (17:15→20:32)
[2019-11-16] MEDS ORDERED: OXYcodone/APAP 5/325MG TABLET ONE ×3 (18:18→21:57)
[2019-11-16] MEDS: OXYcodone/APAP 5/325MG TABLET PO PRN ×3 (18:20→22:01)
[2019-11-16 19:58] VITALS: BP 162/88
[2019-11-16] MEDS ORDERED: DEXTROSE 4 GM TAB.CHEW ONE ×2 (20:58→20:59)
[2019-11-17] MEDS ORDERED: morphine SULFATE 10 MG/ML, 1ML ONE ×2 (00:10→04:19)
[2019-11-17] MEDS: MORPHINE SULFATE 4 MG/ML, 1ML IVPush PRN ×3 (00:13→16:26)
[2019-11-17] MEDS: SODIUM CHLORIDE 0.9% 1,000 ML IV SCH (00:19)
[2019-11-17] MEDS ORDERED: OXYcodone/APAP 5/325MG TABLET ONE ×3 (02:43→11:14)
[2019-11-17] MEDS: OXYcodone/APAP 5/325MG TABLET PO PRN ×6 (02:46→23:54)
[2019-11-17 06:31] LABS: ANION GAP 7 mmol/L (5-15); CALCIUM 6.7 mg/dL (8.5-10.1); CHLORIDE 114 mmol/L (98-107)
[2019-11-17 06:32] LABS: CREATININE 0.63 mg/dL (0.55-1.02)
[2019-11-17 06:51] LABS: BASOPHILS % (AUTO) 0 % (0-1); EOSINOPHILS # (AUTO) 0.24 x10^3/uL (0-0.4); EOSINOPHILS % (AUTO) 1 % (1-7); LYMPHOCYTES % (AUTO) 12 % (22-44); MD NO; MEAN CORPUSCULAR HEMOGLOBIN 24.9 pg (27.0-34.8); MEAN CORPUSCULAR VOLUME 77.7 fL (80-100); MEAN PLATELET VOLUME 6.4 fL (7.4-10.4); MONOCYTES # (AUTO) 1.05 x10^3/uL (0.2-0.8); MONOCYTES % (AUTO) 6 % (2-9); NEUTROPHILS # (AUTO) 14.59 x10^3/uL (1.8-6.8); NEUTROPHILS % (AUTO) 81 % (42-75); PLATELET COUNT 313 x10^3/uL (130-400); RED BLOOD COUNT 3.07 x10^6/uL (3.82-5.3); RED CELL DISTRIBUTION WIDTH 18.7 % (9.6-15.2)
[2019-11-17] MEDS: INSULIN LISPRO 100 UNITS/ML, PEN SQ-INSULIN SCH ×2 (07:00→21:00)
[2019-11-17] MEDS: FERROUS SULFATE 325 MG TABLET PO SCH ×2 (09:00→20:21)
[2019-11-17] MEDS: D5%-0.9% NACL 1,000 ML IV SCH ×2 (12:08→20:29)
[2019-11-17] MEDS: ENOXAPARIN 40 MG/0.4 ML SQ SCH (13:21)
[2019-11-17 15:58] VITALS: BP 155/89
[2019-11-17 20:09] VITALS: BP 123/85
[2019-11-17] MEDS: DOCUSATE 100 MG CAPSULE PO PRN (20:21)
[2019-11-17] MEDS: PRENATAL VIT/IRON/FA 1 EACH TABLET PO SCH ×2 (21:00)
[2019-11-17] MEDS: OXYTOCIN 30U/ 0.9% NaCL 500ML 500 ML IV SCH (22:20)
[2019-11-18] MEDS: MORPHINE SULFATE 4 MG/ML, 1ML IVPush PRN ×3 (01:05→19:28)
[2019-11-18 01:35] VITALS: BP 126/86
[2019-11-18] MEDS: SODIUM CHLORIDE 0.9% 1,000 ML IV SCH ×2 (04:50→17:00)
[2019-11-18] MEDS: OXYcodone/APAP 5/325MG TABLET PO PRN ×4 (04:50→18:18)
[2019-11-18 04:56] VITALS: BP 133/73
[2019-11-18] MEDS: INSULIN LISPRO 100 UNITS/ML, PEN SQ-INSULIN SCH ×4 (07:00→21:00)
[2019-11-18] MEDS: D5%-0.9% NACL 1,000 ML IV SCH ×3 (07:30→23:30)
[2019-11-18 08:20] VITALS: BP 142/92
[2019-11-18] MEDS: OXYTOCIN 30U/ 0.9% NaCL 500ML 500 ML IV SCH ×2 (08:20→18:20)
[2019-11-18] MEDS: DOCUSATE 100 MG CAPSULE PO PRN (08:44)
[2019-11-18] MEDS: PRENATAL VIT/IRON/FA 1 EACH TABLET PO SCH ×2 (08:44→09:00)
[2019-11-18] MEDS: FERROUS SULFATE 325 MG TABLET PO SCH (09:00)
[2019-11-18 12:20] VITALS: BP 125/90
[2019-11-18] MEDS: ENOXAPARIN 40 MG/0.4 ML SQ SCH (14:23)
[2019-11-18 17:08] VITALS: BP 128/83
[2019-11-18 21:00] VITALS: BP 124/82
[2019-11-19 00:15] VITALS: BP 126/77
[2019-11-19] MEDS: FERROUS SULFATE 325 MG TABLET PO SCH ×3 (00:15→19:50)
[2019-11-19] MEDS: DOCUSATE 100 MG CAPSULE PO PRN ×3 (00:15→19:50)
[2019-11-19] MEDS: OXYcodone/APAP 5/325MG TABLET PO PRN ×5 (00:15→19:51)
[2019-11-19] MEDS: SODIUM CHLORIDE 0.9% 1,000 ML IV SCH ×3 (03:00→23:00)
[2019-11-19] MEDS: MORPHINE SULFATE 4 MG/ML, 1ML IVPush PRN ×3 (03:02→21:23)
[2019-11-19] MEDS: OXYTOCIN 30U/ 0.9% NaCL 500ML 500 ML IV SCH ×2 (04:20→14:20)
[2019-11-19 05:07] VITALS: BP 126/85
[2019-11-19] MEDS: INSULIN LISPRO 100 UNITS/ML, PEN SQ-INSULIN SCH ×4 (06:51→21:00)
[2019-11-19] MEDS: D5%-0.9% NACL 1,000 ML IV SCH ×3 (07:30→23:30)
[2019-11-19] MEDS: PRENATAL VIT/IRON/FA 1 EACH TABLET PO SCH ×2 (08:14→09:00)
[2019-11-19 08:40] VITALS: BP 125/82
[2019-11-19 12:00] VITALS: BP 150/81
[2019-11-19] MEDS: ENOXAPARIN 40 MG/0.4 ML SQ SCH (12:51)
[2019-11-19] MEDS ORDERED: ENOXAPARIN 40 MG/0.4 ML SQ ONE (14:30)
[2019-11-19 14:49] LABS: INTERNATIONAL NORMALIZED RATIO 0.85 (0.93-1.1)
[2019-11-19 16:32] VITALS: BP 129/86
[2019-11-19] MEDS ORDERED: WARFARIN 10 MG TABLET PO-COUM ONE (18:00)
[2019-11-19 19:40] VITALS: BP 146/93
[2019-11-19] MEDS: SIMETHICONE 80 MG CHEW TAB PO PRN (20:58)
[2019-11-19] MEDS ORDERED: ENOXAPARIN 40 MG/0.4 ML SQ SCH ×2 (21:00→23:00)
[2019-11-20] VITALS (8 sets, daily range): BP systolic 114–144; BP diastolic 59–91
[2019-11-20] MEDS: OXYTOCIN 30U/ 0.9% NaCL 500ML 500 ML IV SCH ×3 (00:20→20:20)
[2019-11-20] MEDS: OXYcodone/APAP 5/325MG TABLET PO PRN ×5 (01:23→22:25)
[2019-11-20] MEDS: MORPHINE SULFATE 4 MG/ML, 1ML IVPush PRN ×3 (04:13→16:51)
[2019-11-20 06:01] LABS: INTERNATIONAL NORMALIZED RATIO 0.87 (0.93-1.1); PROTHROMBIN TIME 9.2 Seconds (9.6-11.5)
[2019-11-20] MEDS: INSULIN LISPRO 100 UNITS/ML, PEN SQ-INSULIN SCH ×5 (06:50→21:00)
[2019-11-20] MEDS: D5%-0.9% NACL 1,000 ML IV SCH ×3 (07:30→23:30)
[2019-11-20] MEDS: PRENATAL VIT/IRON/FA 1 EACH TABLET PO SCH (08:18)
[2019-11-20] MEDS: FERROUS SULFATE 325 MG TABLET PO SCH ×2 (08:18→20:47)
[2019-11-20] MEDS: DOCUSATE 100 MG CAPSULE PO PRN ×2 (08:19→20:47)
[2019-11-20] MEDS: SODIUM CHLORIDE 0.9% 1,000 ML IV SCH ×2 (09:00→18:03)
[2019-11-20] MEDS: ENOXAPARIN 80 MG/0.8 ML SQ SCH ×2 (09:45→20:48)
[2019-11-20] MEDS: WARFARIN HIGH DOSE PROTOCOL XX SCH (11:56)
[2019-11-20] MEDS: SIMETHICONE 80 MG CHEW TAB PO PRN ×2 (13:11→20:47)
[2019-11-20] MEDS ORDERED: WARFARIN 10 MG TABLET PO-COUM ONE (18:00)
[2019-11-21] VITALS (10 sets, daily range): BP systolic 104–168; BP diastolic 48–113
[2019-11-21] MEDS: OXYcodone/APAP 5/325MG TABLET PO PRN ×4 (02:15→14:51)
[2019-11-21] MEDS: SIMETHICONE 80 MG CHEW TAB PO PRN ×2 (02:16→14:51)
[2019-11-21] MEDS: SODIUM CHLORIDE 0.9% 1,000 ML IV SCH (05:00)
[2019-11-21 06:11] LABS: INTERNATIONAL NORMALIZED RATIO 1.22 (0.93-1.1); PROTHROMBIN TIME 12.7 Seconds (9.6-11.5)
[2019-11-21] MEDS: OXYTOCIN 30U/ 0.9% NaCL 500ML 500 ML IV SCH (06:20)
[2019-11-21] MEDS: INSULIN LISPRO 100 UNITS/ML, PEN SQ-INSULIN SCH ×4 (07:28→20:44)
[2019-11-21] MEDS: D5%-0.9% NACL 1,000 ML IV SCH (07:35)
[2019-11-21] MEDS ORDERED: MORPHINE SULFATE 4 MG/ML, 1ML ONE (08:25)
[2019-11-21] MEDS: FERROUS SULFATE 325 MG TABLET PO SCH ×2 (08:30→20:41)
[2019-11-21] MEDS ORDERED: morphine SULFATE 10 MG/ML, 1ML IVPush ONE (08:30)
[2019-11-21] MEDS: DOCUSATE 100 MG CAPSULE PO PRN (08:30)
[2019-11-21] MEDS: PRENATAL VIT/IRON/FA 1 EACH TABLET PO SCH (08:30)
[2019-11-21] MEDS: ENOXAPARIN 80 MG/0.8 ML SQ SCH ×2 (08:31→20:41)
[2019-11-21 09:15] LABS: MICROSCOPIC AUTO
[2019-11-21 09:28] LABS: CULTURE INDICATED? NO
[2019-11-21] MEDS: WARFARIN HIGH DOSE PROTOCOL XX SCH (11:57)
[2019-11-21] MEDS: MORPHINE SULFATE 4 MG/ML, 1ML IVPush PRN ×2 (15:54→20:33)
[2019-11-21] MEDS ORDERED: WARFARIN 7.5 MG TABLET PO-COUM ONE (18:00)
[2019-11-22] MEDS: MORPHINE SULFATE 4 MG/ML, 1ML IVPush PRN ×5 (00:37→22:05)
[2019-11-22 02:09] VITALS: BP 132/85
[2019-11-22 05:31] LABS: INTERNATIONAL NORMALIZED RATIO 2.09 (0.93-1.1); PROTHROMBIN TIME 21.3 Seconds (9.6-11.5)
[2019-11-22 05:34] LABS: MEAN CORPUSCULAR HEMOGLOBIN 24.7 pg (27.0-34.8); MEAN CORPUSCULAR HGB CONC 31.4 g/dL (32.4-35.8); MEAN CORPUSCULAR VOLUME 78.8 fL (80-100); MEAN PLATELET VOLUME 6.6 fL (7.4-10.4); PLATELET COUNT 579 x10^3/uL (130-400); RED BLOOD COUNT 3.53 x10^6/uL (3.82-5.3); RED CELL DISTRIBUTION WIDTH 24.7 % (9.6-15.2)
[2019-11-22 05:36] LABS: ALBUMIN 1.7 g/dL (3.4-5.0); ANION GAP 8 mmol/L (5-15); CALCIUM 9.1 mg/dL (8.5-10.1); CHLORIDE 105 mmol/L (98-107)
[2019-11-22 05:41] LABS: ALANINE AMINOTRANSFERASE 28 U/L (12-78); ALKALINE PHOSPHATASE 80 U/L (45-117); CREATININE 0.84 mg/dL (0.55-1.02); TOTAL PROTEIN 6.4 g/dL (6.4-8.2)
[2019-11-22 05:42] LABS: BILIRUBIN,TOTAL < 0.1 mg/dL (0.2-1.0)
[2019-11-22 05:58] LABS: BASOPHILS # (AUTO) 0.03 x10^3/uL (0-0.1); BASOPHILS % (AUTO) 0 % (0-1); EOSINOPHILS # (AUTO) 0.58 x10^3/uL (0-0.4); EOSINOPHILS % (AUTO) 4 % (1-7); LYMPHOCYTES # (AUTO) 3.43 x10^3/uL (1-3.4); LYMPHOCYTES % (AUTO) 22 % (22-44); MONOCYTES % (AUTO) 5 % (2-9); NEUTROPHILS # (AUTO) 11.06 x10^3/uL (1.8-6.8); NEUTROPHILS % (AUTO) 70 % (42-75)
[2019-11-22 05:59] LABS: ANISOCYTOSIS 1+; MD MORPH REVIEW ONLY; MICROCYTOSIS 1+
[2019-11-22 06:00] LABS: HYPOCHROMIA 1+; POLYCHROMASIA 1+
[2019-11-22 06:01] LABS: <PLATELET ESTIMATE> INCREASED
[2019-11-22] MEDS: INSULIN LISPRO 100 UNITS/ML, PEN SQ-INSULIN SCH ×4 (07:00→20:26)
[2019-11-22 07:51] VITALS: BP 133/92
[2019-11-22] MEDS: FERROUS SULFATE 325 MG TABLET PO SCH ×2 (08:59→20:25)
[2019-11-22] MEDS: ENOXAPARIN 80 MG/0.8 ML SQ SCH ×2 (08:59→20:25)
[2019-11-22] MEDS: PRENATAL VIT/IRON/FA 1 EACH TABLET PO SCH (09:58)
[2019-11-22] MEDS: OXYcodone/APAP 5/325MG TABLET PO PRN (11:03)
[2019-11-22] MEDS: WARFARIN HIGH DOSE PROTOCOL XX SCH (12:00)
[2019-11-22 13:00] VITALS: BP 119/78
[2019-11-22] MEDS ORDERED: WARFARIN 5 MG TABLET PO-COUM ONE (18:00)
[2019-11-22 20:05] VITALS: BP 122/84
[2019-11-23 01:11] VITALS: BP 130/79
[2019-11-23] MEDS: MORPHINE SULFATE 4 MG/ML, 1ML IVPush PRN ×2 (04:21→13:37)
[2019-11-23 06:55] VITALS: BP 108/72
[2019-11-23] MEDS: INSULIN LISPRO 100 UNITS/ML, PEN SQ-INSULIN SCH ×2 (07:00→11:00)
[2019-11-23 07:48] LABS: INTERNATIONAL NORMALIZED RATIO 2.81 (0.93-1.1); PROTHROMBIN TIME 28.4 Seconds (9.6-11.5)
[2019-11-23 08:01] LABS: ANION GAP 7 mmol/L (5-15); CALCIUM 8.9 mg/dL (8.5-10.1); CHLORIDE 111 mmol/L (98-107); CREATININE 0.66 mg/dL (0.55-1.02)
[2019-11-23 08:33] LABS: MEAN CORPUSCULAR HEMOGLOBIN 24.6 pg (27.0-34.8); MEAN CORPUSCULAR HGB CONC 31.3 g/dL (32.4-35.8); MEAN CORPUSCULAR VOLUME 78.5 fL (80-100); MEAN PLATELET VOLUME 6.3 fL (7.4-10.4); PLATELET COUNT 590 x10^3/uL (130-400); RED BLOOD COUNT 3.01 x10^6/uL (3.82-5.3); RED CELL DISTRIBUTION WIDTH 24.5 % (9.6-15.2)
[2019-11-23 08:34] LABS: BASOPHILS % (AUTO) 0 % (0-1); EOSINOPHILS % (AUTO) 4 % (1-7); LYMPHOCYTES # (AUTO) 1.95 x10^3/uL (1-3.4); LYMPHOCYTES % (AUTO) 14 % (22-44); MD SCAN; MONOCYTES # (AUTO) 0.97 x10^3/uL (0.2-0.8); MONOCYTES % (AUTO) 7 % (2-9); NEUTROPHILS # (AUTO) 10.97 x10^3/uL (1.8-6.8); NEUTROPHILS % (AUTO) 76 % (42-75)
[2019-11-23] MEDS: PRENATAL VIT/IRON/FA 1 EACH TABLET PO SCH (09:06)
[2019-11-23] MEDS: FERROUS SULFATE 325 MG TABLET PO SCH (09:07)
[2019-11-23] MEDS ORDERED: WARF2.5T PO (11:18)
[2019-11-23] MEDS: WARFARIN HIGH DOSE PROTOCOL XX SCH (12:00)
[2019-11-23 13:32] VITALS: BP 139/88
[2019-11-23] MEDS ORDERED: INSU100I11 SQ-INSULIN (14:09)
[2019-11-23] MEDS ORDERED: WARFARIN 3 MG TABLET PO-COUM ONE (18:00)
== END 2019-11-23 15:24 | disposition home or self-care (01) | DRG 783 ==
LOC: LDIP 14:25 → 2NE 11-16 17:06 → 2NW 11-17 15:33 → 3N 11-21 14:33 → DCLOUNGE 11-23 14:55
PROVIDERS: ADMIT Obstetrics & Gynecology; ATTEND Obstetrics & Gynecology
PROC: 10D00Z1 Extraction of Products of Conception, Low, Open Approach (ICD-10-PCS; principal; 2019-11-16)
PROC: 0UB70ZZ Excision of Bilateral Fallopian Tubes, Open Approach (ICD-10-PCS; 2019-11-16)
DX: O40.3XX0 Polyhydramnios, third trimester, not applicable or unspecified (principal); O75.3 Other infection during labor; O24.02 Pre-existing type 1 diabetes mellitus, in childbirth; N12 Tubulo-interstitial nephritis, not specified as acute or chronic; O10.92 Unspecified pre-existing hypertension complicating childbirth; D50.9 Iron deficiency anemia, unspecified; E10.43 Type 1 diabetes mellitus with diabetic autonomic (poly)neuropathy; E10.649 Type 1 diabetes mellitus with hypoglycemia without coma; E83.42 Hypomagnesemia; E83.51 Hypocalcemia; G89.29 Other chronic pain; K31.84 Gastroparesis; O25.2 Malnutrition in childbirth; O99.89 Other specified diseases and conditions complicating pregnancy, childbirth and the puerperium; N28.9 Disorder of kidney and ureter, unspecified; O99.02 Anemia complicating childbirth; D64.9 Anemia, unspecified; Z3A.33 33 weeks gestation of pregnancy; Z82.49 Family history of ischemic heart disease and other diseases of the circulatory system; Z83.3 Family history of diabetes mellitus; Z86.718 Personal history of other venous thrombosis and embolism; Z87.39 Personal history of other diseases of the musculoskeletal system and connective tissue; Z87.440 Personal history of urinary (tract) infections; O99.284 Endocrine, nutritional and metabolic diseases complicating childbirth; Z87.441 Personal history of nephrotic syndrome; Z96.41 Presence of insulin pump (external) (internal); O99.62 Diseases of the digestive system complicating childbirth; K66.0 Peritoneal adhesions (postprocedural) (postinfection)
CPT/HCPCS: 36415; J7042; 71045; 76819; 80048; 80053; 80307; 81001; 82330; 82803; 82962; 83735; 84100; 84439; 84443; 85025; 85610; 86140; 86592; 86850; 86900; 88302; 88307; 93005; 93306; 93970; G0378; J0702; J1170; J1650; J2405; J3010; J1610; J1815; J2270; J2590; J2765; J7030

== ENCOUNTER 2019-12-31 02:54 | Inpatient (IN) | payer OTHER, MEDICAID ==
[~2019-12-31] VITALS: Ht 167.6 cm; Wt 70.0 kg
[~2019-12-31 02:54] MED LIST changes: +INSU100I11 SQ-INSULIN; +NITR100C56 PO; +WARF2.5T PO
[2019-12-31] MEDS ORDERED: LORazepam 2 MG/ML, 1ML IVPush ONE ×2 (03:00→03:30)
[2019-12-31] MEDS ORDERED: SODIUM CHLORIDE 0.9% 1,000ML IVBOLUS ONE ×3 (03:00→04:30)
[2019-12-31] MEDS ORDERED: LORazepam 2 MG/ML, 1ML ONE ×2 (03:14→03:27)
[2019-12-31 03:16] LABS: MD YES; MEAN CORPUSCULAR HEMOGLOBIN 23.2 pg (27.0-34.8); MEAN CORPUSCULAR HGB CONC 31.3 g/dL (32.4-35.8); MEAN CORPUSCULAR VOLUME 74.2 fL (80-100); MEAN PLATELET VOLUME 6.6 fL (7.4-10.4); PLATELET COUNT 886 x10^3/uL (130-400); RED CELL DISTRIBUTION WIDTH 22.9 % (9.6-15.2)
[2019-12-31 03:25] LABS: ALANINE AMINOTRANSFERASE 59 U/L (12-78); ALBUMIN 2.8 g/dL (3.4-5.0); ANION GAP 11 mmol/L (5-15); CALCIUM 9.2 mg/dL (8.5-10.1); CHLORIDE 113 mmol/L (98-107); CREATININE 1.05 mg/dL (0.55-1.02)
[2019-12-31] MEDS ORDERED: OMNIPAQUE 350 MG/ML, 100ML BOTTLE ONE (03:26)
[2019-12-31] MEDS ORDERED: MORPHINE SULFATE 4 MG/ML, 1ML ONE ×3 (03:27→07:33)
[2019-12-31 03:30] LABS: ALKALINE PHOSPHATASE 76 U/L (45-117); BILIRUBIN,TOTAL 0.2 mg/dL (0.2-1.0); TOTAL PROTEIN 6.9 g/dL (6.4-8.2)
[2019-12-31] MEDS: MORPHINE SULFATE 4 MG/ML, 1ML IVPush PRN ×2 (03:31→05:34)
[2019-12-31 03:34] LABS: BAND#(MANUAL) 1.99 x10^3/uL; BANDS%(MANUAL) 7 % (0-7); BASOS#(MANUAL) 0.28 x10^3/uL (0-0.1); BASOS% (MANUAL) 1 % (0-1); EOS#(MANUAL) 0.28 x10^3/uL (0.0-0.4); EOS% (MANUAL) 1 % (1-7); LYMPH#(MANUAL) 2.27 x10^3/uL (1-3.4); LYMPHS% (MANUAL) 8 % (22-44); MONOS#(MANUAL) 1.42 x10^3/uL (0.3-2.7); MONOS% (MANUAL) 5 % (2-9); MYELOCYTES# (MANUAL) 0.28 x10^3/uL (0-0); MYELOCYTES% (MANUAL) 1 % (0-0); SEG#(MANUAL) 21.87 x10^3/uL (1.8-6.8); SEGS% (MANUAL) 77 % (42-75)
[2019-12-31 03:35] LABS: HYPOCHROMIA 1+; MICROCYTOSIS 1+; POLYCHROMASIA 1+
[2019-12-31 03:36] LABS: OVALOCYTES 1+
[2019-12-31 03:37] LABS: <PLATELET ESTIMATE> INCREASED; <PLT MORPHOLOGY> NORMAL PLT MORPH; SPHEROCYTES 1+
--- NOTE | 2019-12-31 04:05 | NUR ---
LATE ENTRY: PT VERY DIFFICULT IV STICK. IV WAS ESTABLISHED AND D50 GIVEN. POST D50 PT STILL CRYING BUT NOW WILL ANSWER YES AND NO QUESTIONS. PT COMPLAINS OF SEVERE LEFT LOWER BACK PAIN AND RUQ ABD PAIN. INFORMED. STAT CT ORDERED. THIS RN ACCOMPANIED PT TO CT AND BACK. PT TOLERATED WELL. PT NOW BACK IN ROOM AND MUCH MORE CALM. AWAITING RESULTS. FEMALE RN AT BEDSIDE DISCUSSING STRAIGHT CATH. PT REFUSING AT THIS TIME. PA INFORMED.
--- NOTE | 2019-12-31 04:10 | NUR ---
PT REQUESTING HER BE CALLED. NO ANSWER AT NUMBER. LEFT MESSAGE REQUESTING CALL BACK. PT GIVEN MULTIPLE WARM BLANKETS PER REQUEST.
--- NOTE | 2019-12-31 04:21 | NUR ---
DISCUSSED WITH MD ABOUT THE SWELLING IN PTS LEFT LEG AND HER HX OF DVT. ULTRASOUND ORDERED.
[2019-12-31] MEDS ORDERED: DEXTROSE 50%, 50ML SYRINGE IVPush ONE ×2 (04:30→05:00)
[2019-12-31] MEDS ORDERED: ENOX40SY4 SQ (04:32)
[2019-12-31] MEDS ORDERED: INSULIN PUMP (04:32)
--- NOTE | 2019-12-31 04:56 | NUR ---
ULTRASOUND AT BEDSIDE. REPEAT FSBS 27. 50ML D50 GIVEN. MD INFORMED.
[2019-12-31 04:57] LABS: INTERNATIONAL NORMALIZED RATIO 0.91 (0.93-1.1); PROTHROMBIN TIME 9.6 Seconds (9.6-11.5)
--- NOTE | 2019-12-31 05:07 | NUR ---
PT NOW AGREEABLE TO STRAIGHT CATH. FEMALE RN AND FEMALE FEATHEREDGE MACHINE OPERATOR AT BEDSIDE.
[2019-12-31] MEDS ORDERED: POTASSIUM PHOSPHATE IV ONE (05:09)
[2019-12-31] MEDS ORDERED: D5 IV ONE (05:09)
[2019-12-31] MEDS ORDERED: NACL IV ONE (05:09)
[2019-12-31] MEDS ORDERED: POTASSIUM CHLORIDE IV ONE (05:09)
[2019-12-31] MEDS ORDERED: D5%-0.45% NACL 1,000 ML IV SCH (05:13)
--- NOTE | 2019-12-31 05:14 | NUR ---
D5 W/ 0.45NS STARTED AT THIS TIME 125MLS/HR PER VERBAL ORDER. AWAITING POPULATION IN MAR FOR DOCUMENTATION.
[2019-12-31] MEDS ORDERED: DEXTROSE 4 GM TAB.CHEW PO PRN (05:30)
[2019-12-31] MEDS ORDERED: HEPARIN 5,000 UNITS/ML, 1ML SQ SCH (05:30)
[2019-12-31] MEDS ORDERED: ACETAMINOPHEN 325 MG TABLET PO PRN (05:30)
[2019-12-31] MEDS ORDERED: GLUCAGON 1 MG IM PRN (05:30)
[2019-12-31] MEDS ORDERED: DEXTROSE 50%, 50ML SYRINGE IVPush PRN (05:30)
[2019-12-31] MEDS ORDERED: hydrALAzine 20 MG/ML, 1ML IVPush PRN (05:30)
[2019-12-31 05:41] LABS: CULTURE INDICATED? YES; MICROSCOPIC AUTO
--- NOTE | 2019-12-31 05:47 | NUR ---
CONSULTED WITH DR SMITH ABOUT HEPARIN VS LOVENOX WHICH PTS ALREADY TAKES DAILY. DR SMITH STATES TO KEEP PT ON LOVENOX. AWAITING ORDER CHANGE.
--- NOTE | 2019-12-31 05:48 | NUR ---
CCU HOLD AT THIS TIME. PT MOVED TO HOSPITAL BED FOR COMFORT. PT DENIES FURTHER NEEDS AT THIS TIME.
--- NOTE | 2019-12-31 05:56 | NUR ---
SPOKE WITH MD AGAIN ABOUT LOVENOX. SHE STATES TO CONFIRM WITH PT THE FREQUENCY OF HOME ADMIN AND TO CONTINUE PTS HOME FREQUENCY. PT CONSULTED WHOM STATES LOVENOX 40 ONCE DAILY IN THE MORNINGS.
[2019-12-31] MEDS ORDERED: ENOXAPARIN 40 MG/0.4 ML ONE (05:57)
[2019-12-31] MEDS: ENOXAPARIN 40 MG/0.4 ML SQ SCH (06:04)
--- NOTE | 2019-12-31 06:50 | NUR ---
Report from Jaswinder MOORE. Pt resting in bed with eyes closed, resp even and unlabored, NADN. Awaiting medical bed assignment.
--- NOTE | 2019-12-31 06:52 | NUR ---
Breakfast tray ordered for pt.
[2019-12-31] MEDS: INSULIN LISPRO 100 UNITS/ML, PEN SQ-INSULIN SCH ×4 (07:00→20:52)
[2019-12-31] MEDS: morphine SULFATE 10 MG/ML, 1ML IVPush PRN ×4 (07:44→20:52)
--- NOTE | 2019-12-31 07:44 | NUR ---
Pt ambulatory down the hallway to the bathroom to void and back to bed without difficulty, steady gait. Pt c/o pain in L hip/flank area, 05/25. Pt states "I don't know" when asked how long this pain has been going on. Pt positioned for comfort in bed with warm blankets. Pt medicated for pain per MAR, given her phone per request. Pt denies other needs.
--- NOTE | 2019-12-31 07:54 | NUR ---
Breakfast tray delivered to pt. Pt resting in bed with eyes closed, easily awakens to this RN calling her name. Pt states she doesn't want to eat breakfast right now. Pt denies other needs.
[2019-12-31] MEDS: SODIUM CHLORIDE FLUSH 10ML SYR IVF SCH ×2 (08:27→20:52)
[2019-12-31] MEDS: ONDANSETRON 2MG/ML, 2ML IVPush PRN ×2 (12:35→20:51)
[2019-12-31 13:28] VITALS: BP 129/82
[2019-12-31 18:31] VITALS: BP 119/75
[2020-01-01 00:58] VITALS: BP 141/83
[2020-01-01] MEDS: morphine SULFATE 10 MG/ML, 1ML IVPush PRN ×6 (01:38→21:01)
[2020-01-01] MEDS ORDERED: D5%-0.45% NACL 1,000 ML IV SCH (05:13)
[2020-01-01 05:20] LABS: MEAN CORPUSCULAR HEMOGLOBIN 23.3 pg (27.0-34.8); MEAN CORPUSCULAR HGB CONC 31.6 g/dL (32.4-35.8); MEAN CORPUSCULAR VOLUME 73.7 fL (80-100); MEAN PLATELET VOLUME 6.7 fL (7.4-10.4); PLATELET COUNT 876 x10^3/uL (130-400); RED CELL DISTRIBUTION WIDTH 22.2 % (9.6-15.2)
[2020-01-01 05:26] LABS: ANION GAP 6 mmol/L (5-15); CALCIUM 8.7 mg/dL (8.5-10.1); CHLORIDE 114 mmol/L (98-107); CREATININE 0.97 mg/dL (0.55-1.02)
[2020-01-01] MEDS: ONDANSETRON 2MG/ML, 2ML IVPush PRN ×3 (05:46→17:58)
[2020-01-01] MEDS: ENOXAPARIN 40 MG/0.4 ML SQ SCH (05:47)
[2020-01-01 06:03] LABS: MD YES
[2020-01-01 06:04] LABS: BAND#(MANUAL) 0.23 x10^3/uL; BANDS%(MANUAL) 2 % (0-7)
[2020-01-01 06:05] LABS: EOS#(MANUAL) 0.35 x10^3/uL (0.0-0.4); EOS% (MANUAL) 3 % (1-7); LYMPH#(MANUAL) 2.65 x10^3/uL (1-3.4); LYMPHS% (MANUAL) 23 % (22-44); MONOS#(MANUAL) 0.81 x10^3/uL (0.3-2.7); MONOS% (MANUAL) 7 % (2-9); SEG#(MANUAL) 7.48 x10^3/uL (1.8-6.8); SEGS% (MANUAL) 65 % (42-75)
[2020-01-01 06:06] LABS: <PLATELET ESTIMATE> INCREASED; <PLT MORPHOLOGY> NORMAL PLT MORPH; ANISOCYTOSIS 1+; HYPOCHROMIA 1+; MICROCYTOSIS 1+; POLYCHROMASIA 1+
[2020-01-01 06:07] LABS: OVALOCYTES 1+
[2020-01-01] MEDS: INSULIN LISPRO 100 UNITS/ML, PEN SQ-INSULIN SCH ×5 (07:00→21:01)
[2020-01-01 07:21] VITALS: BP 128/88
[2020-01-01] MEDS: SODIUM CHLORIDE FLUSH 10ML SYR IVF SCH ×2 (07:50→20:57)
[2020-01-01 12:22] VITALS: BP 139/89
[2020-01-01] MEDS: ENOXAPARIN 80 MG/0.8 ML SQ SCH (16:47)
[2020-01-01] MEDS: AZITHROMYCIN 500 MG in SODIUM CHLORIDE 0.9% 250 ML IV SCH (16:47)
[2020-01-01 18:52] VITALS: BP 134/85
[2020-01-02] MEDS: ONDANSETRON 2MG/ML, 2ML IVPush PRN ×3 (00:26→12:59)
[2020-01-02] MEDS: morphine SULFATE 10 MG/ML, 1ML IVPush PRN ×7 (00:27→21:41)
[2020-01-02 00:36] VITALS: BP 123/84
[2020-01-02] MEDS: ENOXAPARIN 80 MG/0.8 ML SQ SCH ×2 (04:09→16:42)
[2020-01-02 05:59] LABS: ANION GAP 6 mmol/L (5-15); CALCIUM 8.8 mg/dL (8.5-10.1); CHLORIDE 109 mmol/L (98-107)
[2020-01-02 06:32] LABS: MEAN CORPUSCULAR HGB CONC 30.9 g/dL (32.4-35.8); MEAN CORPUSCULAR VOLUME 74.5 fL (80-100); MEAN PLATELET VOLUME 6.9 fL (7.4-10.4); PLATELET COUNT 846 x10^3/uL (130-400); RED BLOOD COUNT 3.81 x10^6/uL (3.82-5.3); RED CELL DISTRIBUTION WIDTH 22.9 % (9.6-15.2)
[2020-01-02 06:54] VITALS: BP 133/87
[2020-01-02 07:12] LABS: BASOPHILS # (AUTO) 0.05 x10^3/uL (0-0.1); BASOPHILS % (AUTO) 1 % (0-1); EOSINOPHILS # (AUTO) 0.33 x10^3/uL (0-0.4); EOSINOPHILS % (AUTO) 3 % (1-7); LYMPHOCYTES # (AUTO) 3.05 x10^3/uL (1-3.4); LYMPHOCYTES % (AUTO) 30 % (22-44); MD SCAN; MONOCYTES # (AUTO) 0.86 x10^3/uL (0.2-0.8); MONOCYTES % (AUTO) 8 % (2-9); NEUTROPHILS # (AUTO) 6.05 x10^3/uL (1.8-6.8); NEUTROPHILS % (AUTO) 59 % (42-75)
[2020-01-02] MEDS: SODIUM CHLORIDE FLUSH 10ML SYR IVF SCH ×2 (07:35→21:42)
[2020-01-02] MEDS: INSULIN LISPRO 100 UNITS/ML, PEN SQ-INSULIN SCH ×4 (07:55→22:22)
[2020-01-02] MEDS: METOCLOPRAMIDE 5 MG/ML, 2ML IVPush SCH ×3 (10:21→21:41)
[2020-01-02 13:39] VITALS: BP 137/89
[2020-01-02] MEDS: AZITHROMYCIN 500 MG in SODIUM CHLORIDE 0.9% 250 ML IV SCH (16:43)
[2020-01-02 16:58] VITALS: BP 125/85
[2020-01-02 19:46] VITALS: BP 129/77
[2020-01-03] MEDS: morphine SULFATE 10 MG/ML, 1ML IVPush PRN ×6 (02:05→23:21)
[2020-01-03 02:39] VITALS: BP 139/89
[2020-01-03 04:42] LABS: BASOPHILS # (AUTO) 0.28 x10^3/uL (0-0.1); BASOPHILS % (AUTO) 3 % (0-1); EOSINOPHILS % (AUTO) 3 % (1-7); LYMPHOCYTES # (AUTO) 2.66 x10^3/uL (1-3.4); LYMPHOCYTES % (AUTO) 27 % (22-44); MD NO; MEAN CORPUSCULAR HEMOGLOBIN 23.1 pg (27.0-34.8); MEAN CORPUSCULAR HGB CONC 30.9 g/dL (32.4-35.8); MEAN CORPUSCULAR VOLUME 74.8 fL (80-100); MONOCYTES # (AUTO) 0.79 x10^3/uL (0.2-0.8); MONOCYTES % (AUTO) 8 % (2-9); NEUTROPHILS # (AUTO) 5.88 x10^3/uL (1.8-6.8); NEUTROPHILS % (AUTO) 59 % (42-75); PLATELET COUNT 767 x10^3/uL (130-400); RED BLOOD COUNT 3.88 x10^6/uL (3.82-5.3)
[2020-01-03 04:46] LABS: ANION GAP 9 mmol/L (5-15); CALCIUM 8.6 mg/dL (8.5-10.1); CHLORIDE 112 mmol/L (98-107); CREATININE 0.96 mg/dL (0.55-1.02)
[2020-01-03] MEDS: METOCLOPRAMIDE 5 MG/ML, 2ML IVPush SCH ×4 (04:54→21:12)
[2020-01-03] MEDS: ENOXAPARIN 80 MG/0.8 ML SQ SCH ×2 (04:55→17:22)
[2020-01-03] MEDS: ONDANSETRON 2MG/ML, 2ML IVPush PRN ×2 (06:26→23:21)
[2020-01-03 08:04] VITALS: BP 128/85
[2020-01-03] MEDS: INSULIN LISPRO 100 UNITS/ML, PEN SQ-INSULIN SCH ×2 (08:07→11:41)
[2020-01-03] MEDS: SODIUM CHLORIDE FLUSH 10ML SYR IVF SCH ×2 (08:08→20:28)
[2020-01-03 14:06] VITALS: BP 131/88
[2020-01-03] MEDS ORDERED: MORPHINE SULFATE 4 MG/ML, 1ML ONE (17:14)
[2020-01-03] MEDS: AZITHROMYCIN 500 MG in SODIUM CHLORIDE 0.9% 250 ML IV SCH (17:21)
[2020-01-03] MEDS: SODIUM CHLORIDE 0.9% 1,000 ML IV SCH (17:22)
[2020-01-03 19:13] VITALS: BP 152/84
[2020-01-04 01:12] VITALS: BP 125/81
[2020-01-04] MEDS: ENOXAPARIN 80 MG/0.8 ML SQ SCH ×2 (03:44→15:49)
[2020-01-04] MEDS: SODIUM CHLORIDE 0.9% 1,000 ML IV SCH ×2 (03:44→15:48)
[2020-01-04] MEDS: METOCLOPRAMIDE 5 MG/ML, 2ML IVPush SCH ×4 (03:44→21:27)
[2020-01-04] MEDS: morphine SULFATE 10 MG/ML, 1ML IVPush PRN ×5 (04:07→21:26)
[2020-01-04 04:51] LABS: CULTURE INDICATED? YES; MICROSCOPIC INDICATED
[2020-01-04 06:22] LABS: MEAN CORPUSCULAR HEMOGLOBIN 23.3 pg (27.0-34.8); MEAN CORPUSCULAR HGB CONC 31.6 g/dL (32.4-35.8); MEAN CORPUSCULAR VOLUME 73.8 fL (80-100); PLATELET COUNT 779 x10^3/uL (130-400); RED BLOOD COUNT 3.86 x10^6/uL (3.82-5.3); RED CELL DISTRIBUTION WIDTH 22.4 % (9.6-15.2)
[2020-01-04 06:34] LABS: ALANINE AMINOTRANSFERASE 47 U/L (12-78); ALBUMIN 2.3 g/dL (3.4-5.0); ANION GAP 8 mmol/L (5-15); CALCIUM 8.8 mg/dL (8.5-10.1); CHLORIDE 114 mmol/L (98-107); CREATININE 0.82 mg/dL (0.55-1.02)
[2020-01-04 06:35] LABS: MD YES
[2020-01-04 06:36] LABS: ALKALINE PHOSPHATASE 60 U/L (45-117); BILIRUBIN,TOTAL 0.2 mg/dL (0.2-1.0); TOTAL PROTEIN 5.9 g/dL (6.4-8.2)
[2020-01-04 06:37] LABS: EOS#(MANUAL) 0.56 x10^3/uL (0.0-0.4); EOS% (MANUAL) 6 % (1-7); LYMPH#(MANUAL) 2.51 x10^3/uL (1-3.4); LYMPHS% (MANUAL) 27 % (22-44); MONOS#(MANUAL) 0.56 x10^3/uL (0.3-2.7); MONOS% (MANUAL) 6 % (2-9); SEG#(MANUAL) 5.67 x10^3/uL (1.8-6.8); SEGS% (MANUAL) 61 % (42-75)
[2020-01-04 06:42] LABS: <PLATELET ESTIMATE> INCREASED; <PLT MORPHOLOGY> NORMAL PLT MORPH; ANISOCYTOSIS 1+; MICROCYTOSIS 1+; POLYCHROMASIA 1+
[2020-01-04] MEDS: SODIUM CHLORIDE FLUSH 10ML SYR IVF SCH ×2 (08:16→20:14)
[2020-01-04] MEDS: MEROPENEM 500 MG in SODIUM CHLORIDE 0.9% 100 ML IV SCH ×2 (08:16→17:05)
[2020-01-04 08:50] VITALS: BP 156/78
[2020-01-04 10:06] VITALS: BP 148/91
[2020-01-04 15:31] VITALS: BP 148/96
[2020-01-04] MEDS: AZITHROMYCIN 500 MG in SODIUM CHLORIDE 0.9% 250 ML IV SCH (15:48)
[2020-01-04 19:06] VITALS: BP 149/100
[2020-01-04] MEDS ORDERED: ONDANSETRON ODT 4 MG ONE (20:12)
[2020-01-04] MEDS: ONDANSETRON 2MG/ML, 2ML IVPush PRN (20:15)
[2020-01-05] MEDS: MEROPENEM 500 MG in SODIUM CHLORIDE 0.9% 100 ML IV SCH ×3 (01:15→17:09)
[2020-01-05] MEDS: morphine SULFATE 10 MG/ML, 1ML IVPush PRN ×5 (01:30→19:59)
[2020-01-05 01:59] VITALS: BP 147/92
[2020-01-05] MEDS: METOCLOPRAMIDE 5 MG/ML, 2ML IVPush SCH ×4 (04:00→23:24)
[2020-01-05] MEDS: ENOXAPARIN 80 MG/0.8 ML SQ SCH ×2 (04:00→17:08)
[2020-01-05 07:15] VITALS: BP 118/80
[2020-01-05 07:53] LABS: ALANINE AMINOTRANSFERASE 46 U/L (12-78); ALBUMIN 2.3 g/dL (3.4-5.0); ANION GAP 7 mmol/L (5-15); CALCIUM 8.5 mg/dL (8.5-10.1); CHLORIDE 112 mmol/L (98-107); CREATININE 0.79 mg/dL (0.55-1.02)
[2020-01-05 07:55] LABS: ALKALINE PHOSPHATASE 62 U/L (45-117); BILIRUBIN,TOTAL 0.2 mg/dL (0.2-1.0)
[2020-01-05] MEDS: SODIUM CHLORIDE 0.9% 1,000 ML IV SCH (08:55)
[2020-01-05] MEDS: SODIUM CHLORIDE FLUSH 10ML SYR IVF SCH ×2 (08:55→21:00)
[2020-01-05 13:36] VITALS: BP 124/83
[2020-01-05] MEDS ORDERED: POTASSIUM CHLORIDE 20 MEQ in SODIUM CHLORIDE 0.9% 1,000 ML IV SCH ×2 (15:30→20:00)
[2020-01-05 19:04] VITALS: BP 139/95
[2020-01-06] MEDS: morphine SULFATE 10 MG/ML, 1ML IVPush PRN ×3 (00:52→09:49)
[2020-01-06] MEDS: MEROPENEM 500 MG in SODIUM CHLORIDE 0.9% 100 ML IV SCH ×2 (00:53→09:49)
[2020-01-06 00:54] VITALS: BP 144/100
[2020-01-06] MEDS: ENOXAPARIN 80 MG/0.8 ML SQ SCH (05:12)
[2020-01-06] MEDS: METOCLOPRAMIDE 5 MG/ML, 2ML IVPush SCH ×2 (05:12→09:50)
[2020-01-06 05:30] LABS: ALBUMIN 2.1 g/dL (3.4-5.0); ANION GAP 6 mmol/L (5-15); CALCIUM 8.5 mg/dL (8.5-10.1); CHLORIDE 113 mmol/L (98-107)
[2020-01-06 05:37] LABS: ALANINE AMINOTRANSFERASE 40 U/L (12-78); ALKALINE PHOSPHATASE 57 U/L (45-117); BILIRUBIN,TOTAL 0.5 mg/dL (0.2-1.0); CREATININE 0.72 mg/dL (0.55-1.02); TOTAL PROTEIN 5.8 g/dL (6.4-8.2)
[2020-01-06 06:45] VITALS: BP 116/79
[2020-01-06] MEDS: SODIUM CHLORIDE FLUSH 10ML SYR IVF SCH (09:50)
[2020-01-06] MEDS ORDERED: ENOX80SY4 SQ (12:23)
[2020-01-06] MEDS ORDERED: PROM25SU35 PR (12:23)
[2020-01-06] MEDS ORDERED: SULF1TAB24 PO (12:23)
[2020-01-06] MEDS ORDERED: MEROPENEM 1 GM in SODIUM CHLORIDE 0.9% 100 ML IV SCH (16:00)
== END 2020-01-06 15:00 | disposition home or self-care (01) | DRG 73 ==
LOC: ED 05:00 → EDIP 05:57 → 3N 08:35 → DCLOUNGE 01-06 14:54
PROVIDERS: ADMIT Family Medicine; ATTEND Internal Medicine
DX: E10.43 Type 1 diabetes mellitus with diabetic autonomic (poly)neuropathy (principal); G93.41 Metabolic encephalopathy; J18.9 Pneumonia, unspecified organism; N12 Tubulo-interstitial nephritis, not specified as acute or chronic; B96.20 Unspecified Escherichia coli [E. coli] as the cause of diseases classified elsewhere; D50.9 Iron deficiency anemia, unspecified; E10.649 Type 1 diabetes mellitus with hypoglycemia without coma; E78.5 Hyperlipidemia, unspecified; E86.0 Dehydration; E87.6 Hypokalemia; I10 Essential (primary) hypertension; Z98.891 History of uterine scar from previous surgery; Z86.718 Personal history of other venous thrombosis and embolism; N20.0 Calculus of kidney; K31.84 Gastroparesis; T14.90XA Injury, unspecified, initial encounter; V89.2XXA Person injured in unspecified motor-vehicle accident, traffic, initial encounter; Y93.89 Activity, other specified; Y92.488 Other paved roadways as the place of occurrence of the external cause; Y99.8 Other external cause status; Z87.39 Personal history of other diseases of the musculoskeletal system and connective tissue; Z87.440 Personal history of urinary (tract) infections; Z96.41 Presence of insulin pump (external) (internal); N83.209 Unspecified ovarian cyst, unspecified side
CPT/HCPCS: 36415; 70450; 71045; 72125; 74177; 76770; 80048; 80053; 80307; 81001; 82962; 83036; 83605; 83880; 84145; 84443; 84703; 85025; 85610; 85730; 87040; 87077; 87086; 87186; 93005; 96361; 96374; G0378; J0456; J1650; J2185; J2405; J3480; Q9967; J1815; J2060; J2270; J2765; J7030; J7050

== ENCOUNTER 2020-05-24 07:11 | Outpatient (CLI) | payer OTHER, MEDICAID ==
[~2020-05-24 07:11] MED LIST changes: +ENOX80SY4 SQ; +SULF1TAB24 PO; -WARF2.5T PO; +WARF2.5T2 PO
[2020-05-24 13:28] LABS: MEAN CORPUSCULAR HEMOGLOBIN 22.9 pg (27.0-34.8); MEAN CORPUSCULAR HGB CONC 31.9 g/dL (32.4-35.8); MEAN PLATELET VOLUME 7.5 fL (7.4-10.4); PLATELET COUNT 403 x10^3/uL (130-400); RED BLOOD COUNT 5.26 x10^6/uL (3.82-5.3); RED CELL DISTRIBUTION WIDTH 20.8 % (9.6-15.2)
[2020-05-24 13:45] LABS: MD YES
[2020-05-24 13:47] LABS: ANISOCYTOSIS 1+; EOS#(MANUAL) 0.39 x10^3/uL (0.0-0.4); EOS% (MANUAL) 4 % (1-7); HYPOCHROMIA 1+; LYMPH#(MANUAL) 3.01 x10^3/uL (1-3.4); LYMPHS% (MANUAL) 31 % (22-44); MICROCYTOSIS 1+; MONOS#(MANUAL) 0.49 x10^3/uL (0.3-2.7); MONOS% (MANUAL) 5 % (2-9); SEG#(MANUAL) 5.82 x10^3/uL (1.8-6.8); SEGS% (MANUAL) 60 % (42-75)
[2020-05-24 13:48] LABS: <PLATELET ESTIMATE> ADEQUATE; <PLT MORPHOLOGY> NORMAL PLT MORPH
[2020-05-24 13:55] LABS: CHLORIDE 116 mmol/L (98-107)
[2020-05-24 14:02] LABS: ALANINE AMINOTRANSFERASE 20 U/L (12-78); ALBUMIN 2.9 g/dL (3.4-5.0); ALKALINE PHOSPHATASE 79 U/L (45-117); ANION GAP 6 mmol/L (5-15); BILIRUBIN,TOTAL 0.1 mg/dL (0.2-1.0); CALCIUM 9.9 mg/dL (8.5-10.1); CREATININE 0.98 mg/dL (0.55-1.02); TOTAL PROTEIN 7.1 g/dL (6.4-8.2)
== END 2020-05-24 23:59 | disposition home or self-care (01) ==
LOC: CFH 07:11
PROVIDERS: ATTEND Nurse Practitioner Family
DX: K85.90 Acute pancreatitis without necrosis or infection, unspecified (principal); R10.13 Epigastric pain; R63.0 Anorexia
CPT/HCPCS: 36415; 76700; 80053; 82150; 83690; 85025

== ENCOUNTER 2021-02-22 06:52 | Outpatient (CLI) | payer OTHER, MEDICAID ==
[~2021-02-22 06:52] MED LIST changes: -CLIN300C8 PO; +CLIN300C9 PO; -FOLI-17 PO; +FOLI1TAB32 PO
== END 2021-02-22 23:59 | disposition home or self-care (01) ==
LOC: CVU 06:52
PROVIDERS: ATTEND Nurse Practitioner Family
DX: R60.0 Localized edema (principal); Z13.228 Encounter for screening for other metabolic disorders; I10 Essential (primary) hypertension; E10.9 Type 1 diabetes mellitus without complications
CPT/HCPCS: 93970

== ENCOUNTER → 2021-04-12 | Outpatient (CLI) | payer OTHER, MEDICAID ==
[~2021-04-12] MED LIST changes: +SULF-23 PO; -SULF1TAB24 PO
[2021-04-12 14:19] LABS: ALANINE AMINOTRANSFERASE 57 U/L (12-78); ANION GAP 7 mmol/L (5-15); CALCIUM 8.6 mg/dL (8.5-10.1); CHLORIDE 109 mmol/L (98-107); CHOLESTEROL, TOTAL 245 mg/dL (140-239); CREATININE 1.23 mg/dL (0.55-1.02)
[2021-04-12 14:21] LABS: ALKALINE PHOSPHATASE 84 U/L (45-117); BILIRUBIN,TOTAL 0.2 mg/dL (0.2-1.0); CHOL/HDL RATIO 4.4; HDL CHOL % 23 % (28-40); HDL CHOLESTEROL (DIRECT) 56 mg/dL (40-60); LDL CHOLESTEROL,CALCULATED 160 mg/dL (54-169); LDL/HDL RATIO 2.9 (0.5-3.0); TOTAL PROTEIN 6.4 g/dL (6.4-8.2); TRIGLYCERIDES 143 mg/dL (50-200); VLDL CHOLESTEROL 29 mg/dL (0-25)
== END | disposition home or self-care (01) ==
LOC: LAB 13:44
PROVIDERS: ATTEND Internal Medicine Endocrinology, Diabetes & Metabolism
DX: E10.649 Type 1 diabetes mellitus with hypoglycemia without coma (principal)
CPT/HCPCS: 36415; 80053; 80061; 83036